=== PATIENT | male | born 1955 | race Caucasian/White ===

== ENCOUNTER 2016-12-24 21:50 | Inpatient (IN) | payer OTHER ==
[~2016-12-24] VITALS: Ht 180.3 cm; Wt 60.5 kg
[2016-12-24] MEDS ORDERED: ONDANSETRON INJ 2 MG/ML 2 ML VIAL IV STA (22:08)
[2016-12-24] MEDS ORDERED: SODIUM CHLORIDE 0.9% 1000ML 2,000 ML IV STA (22:08)
[2016-12-24] MEDS ORDERED: SODIUM CHLORIDE 0.9% 1000ML 1,000 ML IV STA (22:08)
[2016-12-24] MEDS ORDERED: PIPERACILLIN/TAZOBACTAM 4.5 GM/100ML D5W IV STA (22:10)
[2016-12-24] MEDS ORDERED: DAPTOmycin IV 500 MG in SODIUM CHLORIDE 0.9% 50ML 50 ML IV STA (22:10)
[2016-12-24] MEDS ORDERED: PANTOprazole INJ 80 MG in DEXTROSE 5% 100ML IV STA (22:26)
[2016-12-24] MEDS ORDERED: PANTOprazole INJ 40 MG in DEXTROSE 5% 100ML IV SCH (22:30)
[2016-12-24 22:32] LABS: MEAN CELL VOLUME 81.3 fL (80-100); MEAN CORPUSCULAR HEMOGLOBIN 27.4 pg (25-34); MEAN CORPUSCULAR HGB CONC 33.7 g/dl (32-36); MEAN PLATELET VOLUME 9.2 fL (7.4-10.4); PLATELET COUNT 168 K/uL (130-400); RED BLOOD COUNT 3.69 M/uL (4.7-6.1)
[2016-12-24 22:38] LABS: INR 1.3 (0.9-1.1); PARTIAL THROMBOPLASTIN RATIO 1.5; PROTHROMBIN TIME (PATIENT) 13.6 SECONDS (9.0-12.0)
--- NOTE | 2016-12-24 22:42 | DIAGNOSTIC IMAGING REPORT ---
SINGLE VIEW CHEST CLINICAL HISTORY: GI bleed. FINDINGS: An AP, portable, upright chest radiograph is obtained. No prior studies are available for comparison at the time of dictation. The examination is degraded by portable technique and patient rotation. The cardiomediastinal silhouette is unremarkable. There is atherosclerotic calcification of the thoracic aorta. Emphysema is suspected and there is nonspecific interstitial thickening. No airspace consolidation, large pleural effusion, or pneumothorax is seen. The skeletal structures are osteopenic. The bony thorax is grossly intact. Calcified gallstones are suspected in the right upper quadrant. IMPRESSION: 1. Suspect emphysema. There is no acute cardiopulmonary abnormality. 2. Calcified gallstones are questioned in the right upper quadrant. Electronically signed by: Doyle Diallo M.D. 12/24/2016 10:41 PM Dictated Date/Time: 12/24/2016 10:40 PM
[2016-12-24 22:48] LABS: CALCIUM 8.9 mg/dl (8.5-10.1)
[2016-12-24 22:49] LABS: ALT/SGPT 12 U/L (12-78); BLOOD UREA NITROGEN 50 mg/dl (7-18); BUN/CREATININE RATIO 21.6 (10-20); CARBON DIOXIDE 19 mmol/L (21-32); CHLORIDE 97 mmol/L (98-107); GLUCOSE 137 mg/dl (70-99); POTASSIUM 3.6 mmol/L (3.5-5.1); SODIUM 129 mmol/L (136-145)
[2016-12-24 22:54] LABS: ALKALINE PHOSPHATASE 147 U/L (45-117); AST/SGOT 14 U/L (15-37); CKMB/CK RATIO 1.4 (0-3.0)
[2016-12-24 23:02] LABS: BASO % 0.1 %; BASO ABS # 0.01 K/uL (0-0.2); COMPLETE YES; ECHINOCYTES 1+; HYPOCHROMIA PRESENT; IG% 0.3 %; LYMPH % 4.5 %; LYMPH ABS # 0.33 K/uL (1.2-3.4); MONO % 7.5 %; NEUT % 87.6 %
[2016-12-24] MEDS ORDERED: TAMS0.4C38 PO (23:23)
[2016-12-24] MEDS ORDERED: METO25TA56 PO (23:23)
[2016-12-24] MEDS ORDERED: MELO15TA4 PO (23:23)
[2016-12-24] MEDS ORDERED: ACET-1256 PO (23:23)
[2016-12-24] MEDS ORDERED: VANCOMYCIN INJ 1,000 MG in SODIUM CHLORIDE 0.9% 250ML 250 ML IV STA (23:51)
--- NOTE | 2016-12-24 23:51 | History and Physical ---
History & Physical Date & Time of Service: Dec 24, 2016 at 23:51 Chief Complaint: Blood In Stool Primary Care Physician: Saeed MATTHEWS History of Present Illness Source: patient 61-year-old male resident of [facility] [place], with a past medical history of colon cancer status post resection, who was sent to the emergency department with concerns regarding lower pelvic discomfort and the possibility of a colovesical fistula due to symptoms of bubbles produced when urinating, and urine leakage through rectum. The patient reports a history of wearing a colostomy bag in the past. He also reports progressive fatigue, generalized weakness, decreased oral intake, and low back pain and pelvic pain. 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) Multi-Drug Resistant Organisms History of MDRO: No Allergies Coded Allergies: No Known Allergies (Unverified , 12/24/16) Home Medications Scheduled Acetaminophen (Tylenol), 1,000 MG PO TID Meloxicam (Mobic), 15 MG PO DAILY Metoprolol Tartrate (Lopressor) (Lopressor), 25 MG PO BID Tamsulosin Hcl (Flomax), 0.4 MG PO DAILY Review of Systems The patient denies chest pain, palpitations, shortness of breath, cough, lower extremity swelling, vision change, hearing change, sore throat, fevers, chills, sweats, weight change, nausea, vomiting, lightheadedness, dizziness, headache , memory loss, rash, abnormal bruising or bleeding, imbalance, focal weakness, numbness or tingling in arms or legs, arthralgias or myalgias, night sweats, or allergy symptoms. The review of systems is otherwise negative other than for that already noted above, and at least 10 systems have been reviewed. Physical Exam Vital Signs Date Time Temp Pulse Resp B/P (MAP) Pulse Ox O2 Delivery O2 Flow Rate FiO2 12/24/16 23:20 118 21 12/24/16 23:10 103/66 95 12/24/16 22:50 124 27 12/24/16 22:47 95 Room Air 12/24/16 22:20 133 28 94 12/24/16 22:12 135 12/24/16 22:08 110/68 12/24/16 21:56 36.7 146 20 84/55 95 Room Air The patient is awake, alert and oriented 3, normocephalic and atraumatic, disheveled, lying in bed and in no acute distress. HEENT--PERRL, EOMI, mucous membranes and oropharynx dry. Neck--supple, no JVD or bruits, thyroid normal, trachea midline, no adenopathy. Heart--normal S1 and S2, no extra beats, no murmurs, rubs or gallops. Lungs--clear bilaterally but diminished throughout, no respiratory distress, no accessory muscle use. Abdomen--normal bowel sounds and soft, mild pelvic tenderness, nondistended, no hernias or masses, no organomegaly. Extremities--no cyanosis, clubbing or edema. There are good distal pulses b/l. Dermatologic--erythema/induration right lower pelvis/perineal area Neurologic--cranial nerves II through XII grossly intact. Psychiatric--normal affect. Diagnostics Laboratory Results Results Past 24 Hours Test 12/24/16 22:14 12/24/16 22:47 Range/Units White Blood Count 7.30 4.8-10.8 K/uL Red Blood Count 3.69 4.7-6.1 M/uL Hemoglobin 10.1 14.0-18.0 g/dL Hematocrit 30.0 42-52 % Mean Corpuscular Volume 81.3 80-100 fL Mean Corpuscular Hemoglobin 27.4 25-34 pg Mean Corpuscular Hemoglobin Concent 33.7 32-36 g/dl Platelet Count 168 130-400 K/uL Mean Platelet Volume 9.2 7.4-10.4 fL Neutrophils (%) (Auto) 87.6 % Lymphocytes (%) (Auto) 4.5 % Monocytes (%) (Auto) 7.5 % Eosinophils (%) (Auto) 0.0 % Basophils (%) (Auto) 0.1 % Neutrophils # (Auto) 6.39 1.4-6.5 K/uL Lymphocytes # (Auto) 0.33 1.2-3.4 K/uL Monocytes # (Auto) 0.55 0.11-0.59 K/uL Eosinophils # (Auto) 0.00 0-0.5 K/uL Basophils # (Auto) 0.01 0-0.2 K/uL RDW Standard Deviation 51.5 36.4-46.3 fL RDW Coefficient of Variation 17.0 11.5-14.5 % Immature Granulocyte % (Auto) 0.3 % Immature Granulocyte # (Auto) 0.02 0.00-0.02 K/uL Hypochromasia PRESENT Echinocytes 1+ Prothrombin Time 13.6 9.0-12.0 SECONDS Prothromb Time International Ratio 1.3 0.9-1.1 Activated Partial Thromboplast Time 39.1 21.0-31.0 SECONDS Partial Thromboplastin Ratio 1.5 Sodium Level 129 136-145 mmol/L Potassium Level 3.6 3.5-5.1 mmol/L Chloride Level 97 98-107 mmol/L Carbon Dioxide Level 19 21-32 mmol/L Anion Gap 13.0 3-11 mmol/L Blood Urea Nitrogen 50 7-18 mg/dl Creatinine 2.30 0.60-1.40 mg/dl Est Creatinine Clear Calc Drug Dose 28.5 ml/min Estimated GFR () 34.0 Estimated GFR (Non- 29.3 BUN/Creatinine Ratio 21.6 10-20 Random Glucose 137 70-99 mg/dl Calcium Level 8.9 8.5-10.1 mg/dl Total Bilirubin 0.5 0.2-1 mg/dl Direct Bilirubin 0.2 0-0.2 mg/dl Aspartate Amino Transf (AST/SGOT) 14 15-37 U/L Alanine Aminotransferase (ALT/SGPT) 12 12-78 U/L Alkaline Phosphatase 147 45-117 U/L Total Creatine Kinase 110 39-308 U/L Creatine Kinase MB 1.5 0.5-3.6 ng/ml Creatine Kinase MB Ratio 1.4 0-3.0 Troponin I < 0.015 0-0.045 ng/ml Total Protein 7.8 6.4-8.2 gm/dl Albumin 2.4 3.4-5.0 gm/dl Lipase 79 73-393 U/L Bedside Lactic Acid Venous 2.61 0.90-1.70 mmol/L Microbiology Results 12/24/16 Blood Culture, Received Pending 12/24/16 Blood Culture, Received Pending Diagnostic Radiology Patient Name: TAQUERIA WELSH [id number] Unit Number: [id number] Dictated: 12/24/162239 Transcribed: 12/24/162239 EV Printed Date/Time: [~ rep prt dt]/[~ rep prt tm] [~ rep ct labl] - [~ rep ct ivnm] [facility] Radiology Department [place] [id number] Dictated: 12/24/162239 Transcribed: 12/24/162239 EV Printed Date/Time: [~ rep prt dt]/[~ rep prt tm] [~ rep ct labl] - [~ rep ct ivnm] SINGLE VIEW CHEST CLINICAL HISTORY: GI bleed. FINDINGS: An AP, portable, upright chest radiograph is obtained. No prior studies are available for comparison at the time of dictation. The examination is degraded by portable technique and patient rotation. The cardiomediastinal silhouette is unremarkable. There is atherosclerotic calcification of the thoracic aorta. Emphysema is suspected and there is nonspecific interstitial thickening. No airspace consolidation, large pleural effusion, or pneumothorax is seen. The skeletal structures are osteopenic. The bony thorax is grossly intact. Calcified gallstones are suspected in the right upper quadrant. IMPRESSION: 1. Suspect emphysema. There is no acute cardiopulmonary abnormality. 2. Calcified gallstones are questioned in the right upper quadrant. Electronically signed by: Doyle Diallo M.D. 12/24/2016 10:41 PM Dictated Date/Time: 12/24/2016 10:40 PM The status of this report is Signed. Draft = Not yet reviewed or approved by Radiologist. Signed = Reviewed and approved by Radiologist. <AttendingPhy></AttendingPhy> <FamilyPhy>Saeed MATTHEWS</FamilyPhy> <PrimaryPhy> Saeed MATTHEWS</PrimaryPhy> <UnitNumber>[id number]</UnitNumber> <VisitNumber> [id number]</VisitNumber> <PatientName>TAQUERIA WELSH [id number]</PatientName> < DateOfBirth>1955</DateOfBirth> <Location>[facility]</Location> <ServiceDate>10/07</ServiceDate> <MNE>ESINDI</MNE> <OrderingPhy>Jay Ramirez MD</ OrderingPhy> <OrderingPhyMNE>f rep ord dr santos</OrderingPhyMNE> <DictatingPhyMNE> f rep dict dr santos</DictatingPhyMNE> <CCListMNE>f rep ct mne</CCListMNE> < AdmittingPhyMNE>f pt admit dr santos</AdmittingPhyMNE> <AttendingPhyMNE>f pt attend dr santos</AttendingPhyMNE> <ConsultingPhyMNE>f pt consult dr santos</ConsultingPhyMNE> <FamilyPhyMNE>f pt fam dr santos</FamilyPhyMNE> <OtherPhyMNE>f pt other dr santos</OtherPhyMNE> < PrimaryPhyMNE>f pt prim care dr santos</PrimaryPhyMNE> <ReferringPhyMNE>f pt referring dr santos</ReferringPhyMNE> Patient Name: TAQUERIA WELSH [id number] Unit Number: [id number] Dictated: 12/25/165 Transcribed: 12/25/165 EV Printed Date/Time: [~ rep prt dt]/[~ rep prt tm] [~ rep ct labl] - [~ rep ct ivnm] [facility] [place] [address] Dictated: 12/25/165 Transcribed: 12/25/165 EV Printed Date/Time: [~ rep prt dt]/[~ rep prt tm] [~ rep ct labl] - [~ rep ct ivnm] [~ rep ct add3]] CT SCAN OF THE ABDOMEN AND PELVIS WITHOUT IV CONTRAST CLINICAL HISTORY: Generalized abdominal pain. Nausea and vomiting. Diarrhea. Hematochezia. History of colon cancer. COMPARISON STUDY: No priors. TECHNIQUE: CT scan of the abdomen and pelvis is performed from the lung bases to the proximal femora. Images are reviewed in the axial, sagittal, and coronal planes. IV contrast was not administered for this examination due to elevated serum creatinine. Note that the examination is suboptimal without oral and IV contrast. Automated dose control exposure was utilized. CT DOSE: 290.70 mGy.cm FINDINGS: Lung bases: The heart is mildly enlarged and there is a small pericardial effusion. The coronary arteries are densely calcified. A tiny hiatal hernia is noted. There is a trace right pleural effusion and bibasilar atelectasis. Emphysema is suggested. No airspace consolidation is identified typical for pneumonia. Liver: The unenhanced liver appears enlarged. The liver demonstrates diffusely diminished attenuation consistent with hepatic steatosis. There is no intrahepatic biliary ductal dilatation. Indeterminant calcifications are noted along the hepatic capsule. Gallbladder: Contracted. Spleen: The spleen is markedly enlarged, measuring 16.7 cm in length. Pancreas: The unenhanced pancreas is moderately atrophic and grossly unremarkable. Adrenal glands: Unremarkable. Kidneys: The unenhanced kidneys images are cortical atrophy. There is moderate bilateral hydroureteronephrosis. Gas is present within the right renal collecting system. A mild nonspecific bilateral perinephric stranding is observed. Urothelial thickening is seen bilaterally. There are no renal calculi identified. There is no evidence of contour deforming renal mass lesion. Abdominal vasculature: The abdominal aorta is normal in course and caliber noting moderate atherosclerotic calcification. Bowel: There are postoperative changes from rectal resection with colocolonic anastomosis. No bowel obstruction is identified. The appendix is not identified and reported surgically absent. Peritoneum: There is no intraperitoneal free air or abdominal ascites. There is evidence of previous ventral hernia repair. No organized fluid collection is seen to suggest abscess. Lymphadenopathy: There is retroperitoneal lymphadenopathy. Retroperitoneal lymph nodes measure up to 12 mm in short axis. Pelvic viscera: Evaluation of the pelvis is degraded by streak artifact from a right hip arthroplasty. The bladder wall is markedly thickened. A bladder diverticulum is suggested eccentric to the left on image #[id number]. There is a large volume of gas within the bladder lumen. There is loss of the fat plane between the bladder and the rectosigmoid colon. A colovesicular fistula is not excluded. The prostate gland is diminutive and not well assessed. There is marked presacral soft tissue thickening and induration which may be treatment related. There is marked induration of the perineal soft tissues, right greater than left. There are numerous foci of subcutaneous gas identified in the right perineal region consistent with Patricia's gangrene. There is no perineal fluid collection identified to suggest abscess. Skeletal structures: The skeletal structures are osteopenic. Lumbosacral spondylosis is observed. There are age indeterminant compression deformities of T10, T11, T12, L4, and L5. No lytic or blastic lesions are seen. A right hip arthroplasty is in place. 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 There are healed left-sided rib fractures. IMPRESSION: 1. 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 2. There are postoperative changes from rectal resection with colocolonic anastomosis. Marked presacral soft tissue induration/thickening is likely treatment related. No bowel obstruction is seen. 3. The bladder is markedly thick-walled and contains intraluminal gas and debris. There is loss of the fat plane between the posterior bladder and the colon, and the appearance is highly concerning for a colovesicular fistula with superimposed cystitis. 4. There is moderate bilateral hydroureteronephrosis. There is gas present within the right renal collecting system, as well as bilateral perinephric stranding and urothelial thickening. The appearance is consistent with ascending urinary tract infection. Correlation with urinalysis will be required. 4. Cardiomegaly and trace pericardial effusion. 5. Emphysema. 6. Hepatomegaly and hepatic steatosis. 7. Marked splenomegaly. 8. Mild retroperitoneal lymphadenopathy. 9. Trace right pleural effusion. 10. There are small calcifications identified along the hepatic capsule. These are of indeterminant etiology and significance. 11. Additional findings as above. Findings were discussed with Dr. Ramirez in the emergency department at the time of interpretation. Electronically signed by: Doyle Diallo M.D. 12/25/2016 12:22 AM Dictated Date/Time: 12/25/2016 12:06 AM The status of this report is Signed. Draft = Not yet reviewed or approved by Radiologist. Signed = Reviewed and approved by Radiologist. <AttendingPhy></AttendingPhy> <FamilyPhy>Saeed MATTHEWS</FamilyPhy> <PrimaryPhy> Saeed MATTHEWS</PrimaryPhy> <UnitNumber>[id number]</UnitNumber> <VisitNumber> [id number]</VisitNumber> <PatientName>EL WELSHORY [id number]</PatientName> < DateOfBirth>1955</DateOfBirth> <Location>[facility]</Location> <ServiceDate>10/07</ServiceDate> <MNE>ESINDI</MNE> <OrderingPhy>Jay Ramirez MD</ OrderingPhy> <OrderingPhyMNE>f rep ord dr santos</OrderingPhyMNE> <DictatingPhyMNE> f rep dict dr santos</DictatingPhyMNE> <CCListMNE>f rep ct tom</CCListMNE> < AdmittingPhyMNE>f pt admit dr santos</AdmittingPhyMNE> <AttendingPhyMNE>f pt attend dr santos</AttendingPhyMNE> <ConsultingPhyMNE>f pt consult dr santos</ConsultingPhyMNE> <FamilyPhyMNE>f pt fam dr santos</FamilyPhyMNE> <OtherPhyMNE>f pt other dr santos</OtherPhyMNE> < PrimaryPhyMNE>f pt prim care dr santos</PrimaryPhyMNE> <ReferringPhyMNE>f pt referring dr santos</ReferringPhyMNE> EKG EKG shows sinus tachycardia at 120 bpm, nonspecific ST-T changes rate related. 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 Place on vancomycin IV per renal dosing, Zosyn 3.375 mg IV every 8 hours, clindamycin 900 mg IV every 8 hours. Keep nothing by mouth. Place on Protonix 40 mg IV daily, Zofran 4 mg IV every 6 hours when necessary, morphine sulfate 2-4 mg IV every 2 hours when necessary, acetaminophen 650 mg IV every 6 hours when necessary. General surgery consult tonight, will also need a urologic consult. Acute renal insufficiency/hyponatremia-continue to hydrate with normal saline 150 ML's per hour. Follow serial BMP and magnesium levels. Sinus tachycardia--secondary to dehydration and sepsis. He has already received 2 L of normal saline and emergency department, and we'll continue however at 150 ML's per hour. Bilateral Hydroureterohydronephrosis/chronic bladder wall thickening/renal insufficiency--secondary to above process. Hepatomegaly/splenomegaly--check a hepatitis profile. Consider HIV testing if not done recently Left femoral head avascular necrosis--can address with orthopedics after above is treated. T10, T11, T12, L4 and L5 age-indeterminate compression fractures--no signs of bony lytic or blastic lesions on CT. Level of Care Med/Surg Advanced Directives Existing Advance Directive: No Existing Living Will: No Existing Power of Press Setter: No Resuscitation Status FULL RESUSCITATION VTE Prophylaxis VTE Risk Assessment Done? Y/N: Yes Risk Level: Moderate Given or contraindicated: SCD's
[2016-12-25] MEDS ORDERED: ACETAMINOPHEN IV 100 ML IV PRN
[2016-12-25] MEDS ORDERED: ACETAMINOPHEN 325 MG TAB PO PRN
--- NOTE | 2016-12-25 00:24 | DIAGNOSTIC IMAGING REPORT ---
CT SCAN OF THE ABDOMEN AND PELVIS WITHOUT IV CONTRAST CLINICAL HISTORY: Generalized abdominal pain. Nausea and vomiting. Diarrhea. Hematochezia. History of colon cancer. COMPARISON STUDY: No priors. TECHNIQUE: CT scan of the abdomen and pelvis is performed from the lung bases to the proximal femora. Images are reviewed in the axial, sagittal, and coronal planes. IV contrast was not administered for this examination due to elevated serum creatinine. Note that the examination is suboptimal without oral and IV contrast. Automated dose control exposure was utilized. CT DOSE: 290.70 mGy.cm FINDINGS: Lung bases: The heart is mildly enlarged and there is a small pericardial effusion. The coronary arteries are densely calcified. A tiny hiatal hernia is noted. There is a trace right pleural effusion and bibasilar atelectasis. Emphysema is suggested. No airspace consolidation is identified typical for pneumonia. Liver: The unenhanced liver appears enlarged. The liver demonstrates diffusely diminished attenuation consistent with hepatic steatosis. There is no intrahepatic biliary ductal dilatation. Indeterminant calcifications are noted along the hepatic capsule. Gallbladder: Contracted. Spleen: The spleen is markedly enlarged, measuring 16.7 cm in length. Pancreas: The unenhanced pancreas is moderately atrophic and grossly unremarkable. Adrenal glands: Unremarkable. Kidneys: The unenhanced kidneys images are cortical atrophy. There is moderate bilateral hydroureteronephrosis. Gas is present within the right renal collecting system. A mild nonspecific bilateral perinephric stranding is observed. Urothelial thickening is seen bilaterally. There are no renal calculi identified. There is no evidence of contour deforming renal mass lesion. Abdominal vasculature: The abdominal aorta is normal in course and caliber noting moderate atherosclerotic calcification. Bowel: There are postoperative changes from rectal resection with colocolonic anastomosis. No bowel obstruction is identified. The appendix is not identified and reported surgically absent. Peritoneum: There is no intraperitoneal free air or abdominal ascites. There is evidence of previous ventral hernia repair. No organized fluid collection is seen to suggest abscess. Lymphadenopathy: There is retroperitoneal lymphadenopathy. Retroperitoneal lymph nodes measure up to 12 mm in short axis. Pelvic viscera: Evaluation of the pelvis is degraded by streak artifact from a right hip arthroplasty. The bladder wall is markedly thickened. A bladder diverticulum is suggested eccentric to the left on image #[id number]. There is a large volume of gas within the bladder lumen. There is loss of the fat plane between the bladder and the rectosigmoid colon. A colovesicular fistula is not excluded. The prostate gland is diminutive and not well assessed. There is marked presacral soft tissue thickening and induration which may be treatment related. There is marked induration of the perineal soft tissues, right greater than left. There are numerous foci of subcutaneous gas identified in the right perineal region consistent with Patricia's gangrene. There is no perineal fluid collection identified to suggest abscess. Skeletal structures: The skeletal structures are osteopenic. Lumbosacral spondylosis is observed. There are age indeterminant compression deformities of T10, T11, T12, L4, and L5. No lytic or blastic lesions are seen. A right hip arthroplasty is in place. 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 There are healed left-sided rib fractures. IMPRESSION: 1. 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 2. There are postoperative changes from rectal resection with colocolonic anastomosis. Marked presacral soft tissue induration/thickening is likely treatment related. No bowel obstruction is seen. 3. The bladder is markedly thick-walled and contains intraluminal gas and debris. There is loss of the fat plane between the posterior bladder and the colon, and the appearance is highly concerning for a colovesicular fistula with superimposed cystitis. 4. There is moderate bilateral hydroureteronephrosis. There is gas present within the right renal collecting system, as well as bilateral perinephric stranding and urothelial thickening. The appearance is consistent with ascending urinary tract infection. Correlation with urinalysis will be required. 4. Cardiomegaly and trace pericardial effusion. 5. Emphysema. 6. Hepatomegaly and hepatic steatosis. 7. Marked splenomegaly. 8. Mild retroperitoneal lymphadenopathy. 9. Trace right pleural effusion. 10. There are small calcifications identified along the hepatic capsule. These are of indeterminant etiology and significance. 11. Additional findings as above. Findings were discussed with Dr. Ramirez in the emergency department at the time of interpretation. Electronically signed by: Doyle Diallo M.D. 12/25/2016 12:22 AM Dictated Date/Time: 12/25/2016 12:06 AM
[2016-12-25] MEDS ORDERED: CLINDAMYCIN IV 900 MG in DEXTROSE 5% ADD-VANTAGE 100ML 100 ML IV ONE (00:30)
[2016-12-25 00:53] LABS: URINE APPEARANCE TURBID (CLEAR); URINE BILIRUBIN NEG (NEG); URINE COLOR ORANGE; URINE EPITHELIAL CELL AUTO >30 /lpf (0-5); URINE NITRITE POS (NEG); URINE PH 7.5 (4.5-7.5); URINE SPECIFIC GRAVITY 1.015 (1.000-1.030); UROBILINOGEN NEG (NEG)
[2016-12-25 00:56] LABS: MANUAL MICROSCOPIC REQUIRED? NO; REVIEW REQ? YES
[2016-12-25 01:07] LABS: SULFASALICYLIC ACID POS (NEG)
[2016-12-25] MEDS ORDERED: VANCOMYCIN CONSULT ACTIVE PRN (01:15)
--- NOTE | 2016-12-25 01:23 | EMERGENCY ROOM VISIT NOTE ---
History Report prepared by Rocio: Tiff Arnold Under the Supervision of: Dr. Jay Ramirez M.D. First contact with patient: 21:59 Chief Complaint: RECTAL BLEEDING Stated Complaint: BLOOD IN STOOL History of Present Illness The patient is a 61 year old male who presents to the Emergency Room with complaints of intermittent melena since yesterday evening. The patient noticed black, watery, liquid stools yesterday that have continued into today. The patient also reports middle abdominal pain, nausea, and vomiting. He rates his pain as an 8/10 in severity. He is currently incarcerated. He was evaluated at the long term for these symptoms. The patient had a [place] 100.8[place] [address], hemoglobin of 9.8, and his creatinine was elevated at 2. They were concerned that the patient might have a rectovesical fistula. He was sent to the ED for further evaluation. He has a history of colon cancer and rectal bleeding. Pt denies LOC, headache, chills, diaphoresis, visual changes, neck pain, chest pain, breathing difficulties, back pain, urinary symptoms, numbness , weakness, lymphadenopathy, rash, or other complaints. Source of History: patient Onset: yesterday evening Position: abdomen Symptom Intensity: 8/10 Quality: other (black, watery) Timing: intermittent Associated Symptoms: + fevers, + nausea, + vomiting, + abdominal pain, + melena Review of Systems See HPI for pertinent positives and negatives. A total of ten systems were reviewed and were otherwise negative. Past Medical & Surgical Medical Problems: (1) Cellulitis of left upper limb (2) History of colon cancer Surgical Problems: (1) History of right hip replacement Family History No pertinent history stated. Social History Smoking Status: Current Every Day Smoker Housing Status: other (incarcerated) Occupation Status: other (incarcerated) Current/Historical Medications Scheduled Acetaminophen (Tylenol), 1,000 MG PO TID Meloxicam (Mobic), 15 MG PO DAILY Metoprolol Tartrate (Lopressor) (Lopressor), 25 MG PO BID Tamsulosin Hcl (Flomax), 0.4 MG PO DAILY Allergies Coded Allergies: No Known Allergies (Unverified , 12/24/16) Physical Exam Vital Signs Date Time Temp Pulse Resp B/P (MAP) Pulse Ox O2 Delivery O2 Flow Rate FiO2 12/24/16 23:36 113 22 12/24/16 23:31 109/68 12/24/16 23:25 118 22 95 12/24/16 23:20 118 21 12/24/16 23:10 103/66 95 12/24/16 22:50 124 27 12/24/16 22:47 95 Room Air 12/24/16 22:20 133 28 94 12/24/16 22:12 135 12/24/16 22:08 110/68 12/24/16 21:56 36.7 146 20 84/55 95 Room Air Physical Exam GENERAL: Awake, alert, well-appearing, in no distress HENT: Normocephalic, atraumatic. Oropharynx unremarkable. EYES: Pale conjunctiva. Sclera non-icteric. NECK: Supple. No nuchal rigidity. FROM. No JVD. RESPIRATORY: Clear to auscultation. CARDIAC: Tachycardic rate, normal rhythm. Extremities warm and well perfused. Pulses equal. ABDOMEN: Soft, non-distended. Middle abdominal pain. No rebound or guarding. No masses. RECTAL: Black stool present. He had induration and tenderness of his right gluteal perirectal area. MUSCULOSKELETAL: Chest examination reveals no tenderness. The back is symmetrical on inspection without obvious abnormality. There is no CVA tenderness to palpation. No joint edema. LOWER EXTREMITIES: Calves are equal size bilaterally and non-tender. No edema. No discoloration. NEURO: Normal sensorium. No sensory or motor deficits noted. SKIN: No rash or jaundice noted. Medical Decision & Procedures ER Provider Diagnostic Interpretation: Radiology results as stated below per my review and radiologist interpretation: SINGLE VIEW CHEST CLINICAL HISTORY: GI bleed. FINDINGS: An AP, portable, upright chest radiograph is obtained. No prior studies are available for comparison at the time of dictation. The examination is degraded by portable technique and patient rotation. The cardiomediastinal silhouette is unremarkable. There is atherosclerotic calcification of the thoracic aorta. Emphysema is suspected and there is nonspecific interstitial thickening. No airspace consolidation, large pleural effusion, or pneumothorax is seen. The skeletal structures are osteopenic. The bony thorax is grossly intact. Calcified gallstones are suspected in the right upper quadrant. IMPRESSION: 1. Suspect emphysema. There is no acute cardiopulmonary abnormality. 2. Calcified gallstones are questioned in the right upper quadrant. Electronically signed by: Doyle Diallo M.D. 12/24/2016 10:41 PM Dictated Date/Time: 12/24/2016 10:[address] SCAN OF THE ABDOMEN AND PELVIS WITHOUT IV CONTRAST CLINICAL HISTORY: Generalized abdominal pain. Nausea and vomiting. Diarrhea. Hematochezia. History of colon cancer. COMPARISON STUDY: No priors. TECHNIQUE: CT scan of the abdomen and pelvis is performed from the lung bases to the proximal femora. Images are reviewed in the axial, sagittal, and coronal planes. IV contrast was not administered for this examination due to elevated serum creatinine. Note that the examination is suboptimal without oral and IV contrast. Automated dose control exposure was utilized. CT DOSE: 290.70 mGy.cm FINDINGS: Lung bases: The heart is mildly enlarged and there is a small pericardial effusion. The coronary arteries are densely calcified. A tiny hiatal hernia is noted. There is a trace right pleural effusion and bibasilar atelectasis. Emphysema is suggested. No airspace consolidation is identified typical for pneumonia. Liver: The unenhanced liver appears enlarged. The liver demonstrates diffusely diminished attenuation consistent with hepatic steatosis. There is no intrahepatic biliary ductal dilatation. Indeterminant calcifications are noted along the hepatic capsule. Gallbladder: Contracted. Spleen: The spleen is markedly enlarged, measuring 16.7 cm in length. Pancreas: The unenhanced pancreas is moderately atrophic and grossly unremarkable. Adrenal glands: Unremarkable. Kidneys: The unenhanced kidneys images are cortical atrophy. There is moderate bilateral hydroureteronephrosis. Gas is present within the right renal collecting system. A mild nonspecific bilateral perinephric stranding is observed. Urothelial thickening is seen bilaterally. There are no renal calculi identified. There is no evidence of contour deforming renal mass lesion. Abdominal vasculature: The abdominal aorta is normal in course and caliber noting moderate atherosclerotic calcification. Bowel: There are postoperative changes from rectal resection with colocolonic anastomosis. No bowel obstruction is identified. The appendix is not identified and reported surgically absent. Peritoneum: There is no intraperitoneal free air or abdominal ascites. There is evidence of previous ventral hernia repair. No organized fluid collection is seen to suggest abscess. Lymphadenopathy: There is retroperitoneal lymphadenopathy. Retroperitoneal lymph nodes measure up to 12 mm in short axis. Pelvic viscera: Evaluation of the pelvis is degraded by streak artifact from a right hip arthroplasty. The bladder wall is markedly thickened. A bladder diverticulum is suggested eccentric to the left on image #[id number]. There is a large volume of gas within the bladder lumen. There is loss of the fat plane between the bladder and the rectosigmoid colon. A colovesicular fistula is not excluded. The prostate gland is diminutive and not well assessed. There is marked presacral soft tissue thickening and induration which may be treatment related. There is marked induration of the perineal soft tissues, right greater than left. There are numerous foci of subcutaneous gas identified in the right perineal region consistent with Patricia's gangrene. There is no perineal fluid collection identified to suggest abscess. Skeletal structures: The skeletal structures are osteopenic. Lumbosacral spondylosis is observed. There are age indeterminant compression deformities of T10, T11, T12, L4, and L5. No lytic or blastic lesions are seen. A right hip arthroplasty is in place. 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 There are healed left-sided rib fractures. IMPRESSION: 1. 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 2. There are postoperative changes from rectal resection with colocolonic anastomosis. Marked presacral soft tissue induration/thickening is likely treatment related. No bowel obstruction is seen. 3. The bladder is markedly thick-walled and contains intraluminal gas and debris. There is loss of the fat plane between the posterior bladder and the colon, and the appearance is highly concerning for a colovesicular fistula with superimposed cystitis. 4. There is moderate bilateral hydroureteronephrosis. There is gas present within the right renal collecting system, as well as bilateral perinephric stranding and urothelial thickening. The appearance is consistent with ascending urinary tract infection. Correlation with urinalysis will be required. 4. Cardiomegaly and trace pericardial effusion. 5. Emphysema. 6. Hepatomegaly and hepatic steatosis. 7. Marked splenomegaly. 8. Mild retroperitoneal lymphadenopathy. 9. Trace right pleural effusion. 10. There are small calcifications identified along the hepatic capsule. These are of indeterminant etiology and significance. 11. Additional findings as above. Findings were discussed with Dr. Ramirez in the emergency department at the time of interpretation. Electronically signed by: Doyle Diallo M.D. 12/25/2016 12:22 AM Dictated Date/Time: 12/25/2016 12:06 AM Laboratory Results 12/24/16 22:14 Red Blood Count 3.69, Mean Corpuscular Volume 81.3, Mean Corpuscular Hemoglobin 27.4, Mean Corpuscular Hemoglobin Concent 33.7, Mean Platelet Volume 9.2, Neutrophils (%) (Auto) 87.6, Lymphocytes (%) (Auto) 4.5, Monocytes (%) (Auto) 7.5, Eosinophils (%) (Auto) 0.0, Basophils (%) (Auto) 0.1, Neutrophils # (Auto) 6.39, Lymphocytes # (Auto) 0.33, Monocytes # (Auto) 0.55, Eosinophils # (Auto) 0.00, Basophils # (Auto) 0.01 12/24/16 22:14 Test 12/24/16 22:14 12/24/16 22:47 White Blood Count 7.30 K/uL (4.8-10.8) Red Blood Count 3.69 M/uL (4.7-6.1) Hemoglobin 10.1 g/dL (14.0-18.0) Hematocrit 30.0 % (42-52) Mean Corpuscular Volume 81.3 fL (80-100) Mean Corpuscular Hemoglobin 27.4 pg (25-34) Mean Corpuscular Hemoglobin Concent 33.7 g/dl (32-36) Platelet Count 168 K/uL (130-400) Mean Platelet Volume 9.2 fL (7.4-10.4) Neutrophils (%) (Auto) 87.6 % Lymphocytes (%) (Auto) 4.5 % Monocytes (%) (Auto) 7.5 % Eosinophils (%) (Auto) 0.0 % Basophils (%) (Auto) 0.1 % Neutrophils # (Auto) 6.39 K/uL (1.4-6.5) Lymphocytes # (Auto) 0.33 K/uL (1.2-3.4) Monocytes # (Auto) 0.55 K/uL (0.11-0.59) Eosinophils # (Auto) 0.00 K/uL (0-0.5) Basophils # (Auto) 0.01 K/uL (0-0.2) RDW Standard Deviation 51.5 fL (36.4-46.3) RDW Coefficient of Variation 17.0 % (11.5-14.5) Immature Granulocyte % (Auto) 0.3 % Immature Granulocyte # (Auto) 0.02 K/uL (0.00-0.02) Hypochromasia PRESENT Echinocytes 1+ Prothrombin Time 13.6 SECONDS (9.0-12.0) Prothromb Time International Ratio 1.3 (0.9-1.1) Activated Partial Thromboplast Time 39.1 SECONDS (21.0-31.0) Partial Thromboplastin Ratio 1.5 Anion Gap 13.0 mmol/L (3-11) Est Creatinine Clear Calc Drug Dose 28.5 ml/min Estimated GFR () 34.0 Estimated GFR (Non- 29.3 BUN/Creatinine Ratio 21.6 (10-20) Osmolality 281 mOsm/kg (280-300) Calcium Level 8.9 mg/dl (8.5-10.1) Total Bilirubin 0.5 mg/dl (0.2-1) Direct Bilirubin 0.2 mg/dl (0-0.2) Aspartate Amino Transf (AST/SGOT) 14 U/L (15-37) Alanine Aminotransferase (ALT/SGPT) 12 U/L (12-78) Alkaline Phosphatase 147 U/L (45-117) Total Creatine Kinase 110 U/L (39-308) Creatine Kinase MB 1.5 ng/ml (0.5-3.6) Creatine Kinase MB Ratio 1.4 (0-3.0) Troponin I < 0.015 ng/ml (0-0.045) Total Protein 7.8 gm/dl (6.4-8.2) Albumin 2.4 gm/dl (3.4-5.0) Lipase 79 U/L (73-393) Bedside Lactic Acid Venous 2.61 mmol/L (0.90-1.70) Laboratory results reviewed by me. Medications Administered Medications (Trade) Dose Ordered Sig/[place] Route Start Time Stop Time Status Last Admin Dose Admin Ondansetron HCl (Zofran Inj) 4 mg NOW STAT IV 12/24/16 22:08 12/24/16 22:10 DC 12/24/16 22:58 4 MG Sodium Chloride 2,000 ml @ 999 mls/hr Q2H1M STAT IV 12/24/16 22:08 12/25/16 00:08 DC 12/24/16 22:56 999 MLS/HR Sodium Chloride 1,000 ml @ 200 mls/hr Q5H STAT IV 12/24/16 22:08 12/25/16 01:07 DC 12/24/16 23:00 200 MLS/HR Piperacillin Sod/ Tazobactam Sod (Zosyn Iv) 4.5 gm NOW STAT IV 12/24/16 22:10 12/24/16 22:11 DC 12/24/16 23:01 4.5 GM Daptomycin 500 mg/ Sodium Chloride 60 ml @ 100 mls/hr NOW STAT IV 12/24/16 22:10 12/24/16 22:45 DC 12/24/16 23:40 100 MLS/HR Pantoprazole Sodium 80 mg/ Dextrose 120 ml @ 480 mls/hr NOW STAT IV 12/24/16 22:26 12/24/16 22:40 DC 12/24/16 23:03 480 MLS/HR Pantoprazole Sodium 40 mg/ Dextrose 100 ml @ 20 mls/hr Q5H IV 12/24/16 22:30 12/25/16 03:29 12/24/16 23:27 20 MLS/HR ECG Indication: tachycardia Rate (beats per minute): 120 Rhythm: sinus tachycardia Findings: nonspecific-ST abn, no acute ischemic change, no ectopy ED Course 2204: The patient was evaluated in room A3. A complete history and physical exam was performed. 2208: NSS 1000 ml @ 200 mls/hr IV, NSS 2000 ml @ 999 mls/hr IV, Zofran 4 mg IV 2210: Daptomycin 500 mg/Sodium chloride 60 ml @ 100 mls/hr IV, Zosyn 4.5 gmIV. 2226: Pantoprazole Sodium 80 mg/Dextrose 120 ml @ 480 mls/hr IV. The patient was reassessed and is feeling somewhat better. Hypotension has resolved. 2230: Pantoprazole Sodium 40 mg/Dextrose 100 ml @ 20 mls/hr IV 2334: I spoke with Dr. Roque. We discussed the patient's results and treatment plan. The patient will be evaluated by the [facility] for further management. 0001: I reassessed the patient at this time. I performed a rectal examination. Please see the physical examination above for my findings. I discussed the results and treatment plan with the patient. I answered all pertaining questions that he had. He expressed understanding and verbalized agreement. 0009: I spoke with Dr. Diallo of radiology. We discussed the patient's CT results. The patient has Patricia's gangrene. He also has air and abnormal appearance to the bladder, as well as air within his renal collecting system and hydronephrosis. 0017: I spoke with Dr. Aviles of general surgery. We discussed the patient's case in great detail and I especially emphasized the patient's CT findings and physical findings concerning for the foreign's gangrene. He does not think that the patient needs surgery at this time. 0027: I spoke with Dr. Roque again at this time and we discussed the patient's CT results. He is admitting the patient and is requesting surgical consultation. 0040: After discussion with Dr. Ramiro Roque he is putting an urgent consult for general surgery and asked that I contact him again. General surgery , Dr. Aviles was consulted again and I stressed the need for surgical evaluation of the patient and review of the CT imaging regarding the findings to see if he needs any additional care especially urgent surgical intervention. He agreed to see the patient. Medical Decision Medication Reconciliation: I attest that I have personally reviewed the patient' s current medication list Blood pressure screening: Patient was found to have normal blood pressure on screening and does not require follow-up. The patient had blood work [place]. [place] [address], hemoglobin of 9.8 , and his creatinine was elevated at 2. Triage Nursing notes reviewed. The patient's presentation and history were concerning for possible GI bleeding and infection. Etiologies such as diverticulosis, AVM, coagulopathy, colitis, inflammatory bowel disease, malignancy,Laura-Stark tear, esophagitis, peptic ulcer disease , variceal bleed, gastritis, epistaxis, fissure, hemorrhoids, pyelonephritis, cystitis, prostatitis, abscess, diverticulitis as well as others were entertained. Patient was evaluated. He was acutely ill. He was hypertensive and tachycardic. IVs were established. Cultures and lactate performed. The patient had IV fluid resuscitation initiated, approximately 33 mL/kg. Broad- spectrum antibiotics were initiated as well. The patient was doing better after fluid administration. He was typed and crossed. His CBC actually showed a improved white blood cell count although his fever and 14,000 white count from earlier today was very concerning. The patient was mildly anemic. Chemistry panel did reveal acute kidney injury. The patient had a consultation placed with internal medicine. I discussed the case with Dr. Ramiro Roque. CT imaging was ordered to further evaluate the patient's abdominal pain complaints and sepsis issues. Chest imaging did not reveal any acute findings. The patient has marked abnormalities on his CT scan as documented above. Clindamycin was added. The patient was reexamined and he does have some induration in the right gluteal region and this is concerning for the CT findings of Patricia's gangrene. Urgent surgical consultation was made and I discussed the case with Dr. Aviles. Initially he felt medical management was most appropriate. I discussed the case with Dr. Ramiro Roque again and we concluded a urgent surgical consultation was most appropriate and I discussed the case again with Dr. Aviles. He agreed to see the patient and reviewed his diagnostics and person. Repeat lactate measurement done by Dr. Ramiro Roque showed improvement decreasing from 2.6-1.6. The patient was admitted to the hospital for further care of these complex medical issues. Consults Time Called: [phone] Consulting Physician: Dr. Roque Returned Call: [phone] Roque. We discussed the patient's results and treatment plan. The patient will be evaluated by the [facility] for further management. Additional Consults: Time Called: 000 Consulted Physician: Dr. Diallo Returned Call: 000 Additional Comments: I spoke with Dr. Diallo of radiology. We discussed the patient's CT results. The patient has Patricia's gangrene. He also has air and abnormal appearance to the bladder, as well as air within his renal collecting system and hydronephrosis. Time Called: 4 Consulted Physician: Dr. Aviles Returned Call: [phone] Additional Comments: I spoke with Dr. Aviles of general surgery. We discussed the patient's case. He does not think that the patient needs surgery at this time. Impression Primary Impression: GI bleed Additional Impressions: Sepsis Acute renal failure Fourniers gangrene Critical Care I have personally spent greater than 60 minutes of critical care time in the direct management of this patient. This includes bedside care, interpretation of diagnostic studies, and testing, discussion with consultants, patient, and other required patient management activities. This 60 minutes is in excess of all separately billable procedures. Scribe Attestation The scribe's documentation has been prepared under my direction and personally reviewed by me in its entirety. I confirm that the note above accurately reflects all work, treatment, procedures, and medical decision making performed by me. Departure Information Dispostion Being Evaluated By Hospitalist Referrals Saeed MATTHEWS (PCP) Patient Instructions My [facility] Problem Qualifiers Primary Impression: GI bleed GI bleed type/associated pathology: unspecified gastrointestinal hemorrhage type Qualified Codes: K92.2 - Gastrointestinal hemorrhage, unspecified Additional Impressions: Sepsis Sepsis type: sepsis due to unspecified organism Qualified Codes: A41.9 - Sepsis, unspecified organism Acute renal failure Acute renal failure type: unspecified Qualified Codes: N17.9 - Acute kidney failure, unspecified
[2016-12-25 01:26] VITALS: BP 94/59; PULSE 117; TEMP 37; O2SAT 98
[2016-12-25 01:30] VITALS: Ht 180.3 cm; Wt 60.5 kg
[2016-12-25] MEDS ORDERED: MoRPHine SULFATE 4 MG/ML 1 ML CARP\\VIAL IV PRN (01:30)
[2016-12-25] MEDS ORDERED: MoRPHine SULFATE 2 MG/ML CARP IV PRN (01:30)
[2016-12-25] MEDS: SODIUM CHLORIDE 0.9% 1000ML 1,000 ML IV SCH ×3 (01:49→16:25)
[2016-12-25] MEDS ORDERED: VANCOMYCIN INJ 1,500 MG in SODIUM CHLORIDE 0.9% 500ML 500 ML IV SCH (02:00)
--- NOTE | 2016-12-25 02:08 | Surgery Consultation ---
Consultation Date of Consultation: Dec 25, 2016. Attending Physician: Ramiro Roque M.D. History of Present Illness pt is a 61 years old male who presents to ER for 2 days history black stool and air bubble in urine. vomiting once without blood, pt denies fever, no diarrhea , no abdominal pain, 20 lbs weight loss over 2 months, pt had colon cancer surgery in 2005 at other hospital. Past Medical/Surgical History Medical Problems: (1) Acute renal failure Status: Acute (2) Fourniers gangrene Status: Acute (3) GI bleed Status: Acute (4) Sepsis Status: Acute Social History Smoking Status: Current Every Day Smoker Smokeless Tobacco Use: No Alcohol Use: none Drug Use: none Housing Status: other (incarcerated) Occupation Status: other (incarcerated) Allergies Coded Allergies: No Known Allergies (Unverified , 12/24/16) Home Medications Scheduled Acetaminophen (Tylenol), 1,000 MG PO TID Meloxicam (Mobic), 15 MG PO DAILY Metoprolol Tartrate (Lopressor) (Lopressor), 25 MG PO BID Tamsulosin Hcl (Flomax), 0.4 MG PO DAILY Current Inpatient Medications Current Inpatient Medications Medications (Trade) Dose Ordered Sig/Kanchan Route Start Time Stop Time Status Last Admin Dose Admin Pantoprazole Sodium 40 mg/ Dextrose 100 ml @ 20 mls/hr Q5H IV 12/24/16 22:30 12/25/16 03:29 12/24/16 23:27 20 MLS/HR Acetaminophen (Tylenol Tab) 650 mg Q4H PRN PO 12/25/16 00:00 01/24/17 00:00 Ondansetron HCl (Zofran Inj) 4 mg Q6H PRN IV 12/25/16 00:00 01/24/17 00:00 Acetaminophen 100 ml @ 400 mls/hr Q8H PRN IV 12/25/16 00:00 01/24/17 00:00 Pantoprazole Sodium 40 mg/ Syringe 10 ml @ 5 mls/min DAILY@11 IV 12/25/16 11:00 01/24/17 10:59 Piperacillin Sod/ Tazobactam Sod 3.375 gm/Dextrose 115 ml @ 30 mls/hr Q8H IV 12/25/16 04:00 01/04/17 03:59 Metoprolol Tartrate (Lopressor Tab) 25 mg BID PO 12/25/16 09:00 01/24/17 08:59 Tamsulosin HCl (Flomax Cap) 0.4 mg DAILY PO 12/25/16 09:00 01/24/17 08:59 Sodium Chloride 1,000 ml @ 150 mls/hr Q6H40M IV 12/25/16 01:15 01/24/17 01:14 Clindamycin Phosphate 900 mg/ Dextrose 106 ml @ 100 mls/hr Q8H IV 12/25/16 00:45 01/04/17 00:44 UNV Vancomycin HCl (Consult) 1 ea UD PRN N/A 12/25/16 01:15 01/24/17 01:14 Vancomycin HCl 1500 mg/Sodium Chloride 530 ml @ 200 mls/hr TODAY@0200 IV 12/25/16 02:00 12/25/16 04:38 Morphine Sulfate (MoRPHine SULFATE INJ) 2 mg Q2H PRN IV 12/25/16 01:30 01/08/17 01:29 Morphine Sulfate (MoRPHine SULFATE INJ) 4 mg Q2H PRN IV 12/25/16 01:30 01/08/17 01:29 Review of Systems Constitutional: No fever, No chills, No sweats, No weight loss, No weakness, No fatigue, No problem reported Eyes: No worsening of vision, No eye pain, No redness, No discharge, No diplopia, No problem reported ENT: No hearing loss, No unusual epistaxis, No nasal symptoms, No sore throat, No tinnitus, No dental problems, No trouble swallowing, No problem reported Respiratory: No cough, No sputum, No wheezing, No shortness of breath, No dyspnea on exertion, No dyspnea at rest, No hemoptysis, No problem reported Cardiovascular: + problem reported (HTN), No chest pain, No orthopnea, No PND, No edema, No claudication, No palpitations Abdomen: + vomiting, + GI bleeding, + problem reported (colon cancer surgery in 2004) Musculoskeletal: + problem reported (hip replacement), No joint pain, No muscle pain, No swelling, No calf pain Genitourinary - Male: + problem reported (air bubble in urine), No hematuria, No dysuria, No urinary frequency, No urinary urgency, No urinary hesitancy, No urinary retention, No urinary incontinence, No penile discharge, No lesions, No impotence Neurologic: No memory loss, No paralysis, No weakness, No numbness/tingling, No vertigo, No balance problems, No problem reported Psychiatric: No depression symptoms, No anhedonism, No anxiety, No insomnia, No substance abuse, No problem reported Endocrine: No fatigue, No excessive thirst, No excessive urination, No problem reported Hematologic / Lymphatic: No abnormal bleeding/bruising, No clotting problems, No swollen lymph nodes, No night sweats, No problem reported Integumentary: No rash, No itch, No new/changing skin lesions, No color change , No bleeding, No problem reported Physical Exam Date Time Temp Pulse Resp B/P (MAP) Pulse Ox O2 Delivery O2 Flow Rate FiO2 12/25/16 01:26 37.0 117 19 94/59 (71) 98 Room Air 12/25/16 00:38 36.7 101 25 98/62 98 12/25/16 00:36 101 25 98 12/25/16 00:31 98/62 12/25/16 00:23 98/52 12/24/16 23:36 113 22 12/24/16 23:31 109/68 12/24/16 23:25 118 22 95 12/24/16 23:20 118 21 12/24/16 23:10 103/66 95 12/24/16 22:50 124 27 12/24/16 22:47 95 Room Air 12/24/16 22:20 133 28 94 12/24/16 22:12 135 12/24/16 22:08 110/68 12/24/16 21:56 36.7 146 20 84/55 95 Room Air General Appearance: WD/WN, no apparent distress Head: normocephalic Eyes: normal inspection Neck: supple, no JVD Respiratory/Chest: chest non-tender, lungs clear, normal breath sounds Cardiovascular: regular rate, rhythm, no edema, no gallop, no JVD, no murmur Abdomen/GI: normal bowel sounds, non tender, soft (multiple scar on abdomen, no tenderness, no distend, rectal exam: some redness on left ramona-anal area, some tenderness on rectal wall, no active bleeding on rectal area, ) Extremities/Musculoskelatal: normal inspection, no calf tenderness, normal capillary refill Neurologic/Psych: no motor/sensory deficits, alert, normal mood/affect Skin: normal color, warm/dry, no rash Laboratory Results Last 24 Hours Test 12/24/16 22:14 12/24/16 22:47 12/24/16 23:52 12/25/16 00:14 White Blood Count 7.30 K/uL Red Blood Count 3.69 M/uL Hemoglobin 10.1 g/dL Hematocrit 30.0 % Mean Corpuscular Volume 81.3 fL Mean Corpuscular Hemoglobin 27.4 pg Mean Corpuscular Hemoglobin Concent 33.7 g/dl Platelet Count 168 K/uL Mean Platelet Volume 9.2 fL Neutrophils (%) (Auto) 87.6 % Lymphocytes (%) (Auto) 4.5 % Monocytes (%) (Auto) 7.5 % Eosinophils (%) (Auto) 0.0 % Basophils (%) (Auto) 0.1 % Neutrophils # (Auto) 6.39 K/uL Lymphocytes # (Auto) 0.33 K/uL Monocytes # (Auto) 0.55 K/uL Eosinophils # (Auto) 0.00 K/uL Basophils # (Auto) 0.01 K/uL RDW Standard Deviation 51.5 fL RDW Coefficient of Variation 17.0 % Immature Granulocyte % (Auto) 0.3 % Immature Granulocyte # (Auto) 0.02 K/uL Hypochromasia PRESENT Echinocytes 1+ Prothrombin Time 13.6 SECONDS Prothromb Time International Ratio 1.3 Activated Partial Thromboplast Time 39.1 SECONDS Partial Thromboplastin Ratio 1.5 Sodium Level 129 mmol/L Potassium Level 3.6 mmol/L Chloride Level 97 mmol/L Carbon Dioxide Level 19 mmol/L Anion Gap 13.0 mmol/L Blood Urea Nitrogen 50 mg/dl Creatinine 2.30 mg/dl Est Creatinine Clear Calc Drug Dose 28.5 ml/min Estimated GFR () 34.0 Estimated GFR (Non- 29.3 BUN/Creatinine Ratio 21.6 Random Glucose 137 mg/dl Osmolality 281 mOsm/kg Calcium Level 8.9 mg/dl Total Bilirubin 0.5 mg/dl Direct Bilirubin 0.2 mg/dl Aspartate Amino Transf (AST/SGOT) 14 U/L Alanine Aminotransferase (ALT/SGPT) 12 U/L Alkaline Phosphatase 147 U/L Total Creatine Kinase 110 U/L Creatine Kinase MB 1.5 ng/ml Creatine Kinase MB Ratio 1.4 Troponin I < 0.015 ng/ml Total Protein 7.8 gm/dl Albumin 2.4 gm/dl Lipase 79 U/L Bedside Lactic Acid Venous 2.61 mmol/L Lactic Acid Level 1.6 mmol/L Urine Color ORANGE Urine Appearance TURBID Urine pH 7.5 Urine Specific [place] 1.015 Urine Protein 2+ Urine Glucose (UA) NEG Urine Ketones NEG Urine Occult Blood 3+ Urine Nitrite POS Urine Bilirubin NEG Urine Urobilinogen NEG Urine Leukocyte Esterase LARGE Test 12/25/16 01:10 CT Scan abd + pelvis-IMPRESSION: 1. 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 2. There are postoperative changes from rectal resection with colocolonic anastomosis. Marked presacral soft tissue induration/thickening is likely treatment related. No bowel obstruction is seen. 3. The bladder is markedly thick-walled and contains intraluminal gas and debris. There is loss of the fat plane between the posterior bladder and the colon, and the appearance is highly concerning for a colovesicular fistula with superimposed cystitis. 4. There is moderate bilateral hydroureteronephrosis. There is gas present within the right renal collecting system, as well as bilateral perinephric stranding and urothelial thickening. The appearance is consistent with ascending urinary tract infection. Correlation with urinalysis will be required. 4. Cardiomegaly and trace pericardial effusion. 5. Emphysema. 6. Hepatomegaly and hepatic steatosis. 7. Marked splenomegaly. 8. Mild retroperitoneal lymphadenopathy. 9. Trace right pleural effusion. 10. There are small calcifications identified along the hepatic capsule. These are of indeterminant etiology and significance. Assessment & Plan IMP: Colovesicular fistular, perineal infection, retroperitoneal lymphadenopathy , UTI IV antibiotic to control infection pt may need PET scan to R/O cancer recurrence, I recommend colorectal surgeon to do surgery for colovesicular fistular, pt may need to transfer to higher level care, [facility]. will F/U Thanks,
[2016-12-25] MEDS: CLINDAMYCIN IV 900 MG in DEXTROSE 5% ADD-VANTAGE 100ML 100 ML IV SCH ×3 (03:25→17:37)
[2016-12-25] MEDS: PIPERACILL/TAZOBAC IV 3.375 GM in DEXTROSE 5% 100ML 100 ML IV SCH ×2 (05:17→13:29)
[2016-12-25 07:25] VITALS: BP 95/57; PULSE 100; TEMP 37.5; O2SAT 97
[2016-12-25 07:32] LABS: HEMATOCRIT 24.4 % (42-52); MEAN CELL VOLUME 81.6 fL (80-100); MEAN CORPUSCULAR HEMOGLOBIN 27.4 pg (25-34); MEAN CORPUSCULAR HGB CONC 33.6 g/dl (32-36); MEAN PLATELET VOLUME 9.3 fL (7.4-10.4); PLATELET COUNT 160 K/uL (130-400); RED BLOOD COUNT 2.99 M/uL (4.7-6.1); WHITE BLOOD COUNT 6.77 K/uL (4.8-10.8)
[2016-12-25 08:01] LABS: BUN/CREATININE RATIO 22.3 (10-20); CREATININE 1.8 mg/dl (0.60-1.40); POTASSIUM 3.4 mmol/L (3.5-5.1)
[2016-12-25 08:08] LABS: BASO % 0.1 %; BASO ABS # 0.01 K/uL (0-0.2); COMPLETE YES; DOHLE BODIES 1+; IG% 0.3 %; LYMPH % 7.5 %; LYMPH ABS # 0.51 K/uL (1.2-3.4); MONO % 9.6 %; NEUT % 82.5 %
--- NOTE | 2016-12-25 08:55 | Progress Note ---
Progress Note Date of Service Dec 25, 2016. Progress Note ID Consult Dictated # [id number] A/P: 1. Necrotizing Fasciitis, ? colovesicular fistula -Continue broad spectrum abx for now, follow cultures -Add caspo due to budding yeast on UA -Surgery following, await decision regarding OR vs transfer -Will follow, thank you
[2016-12-25] MEDS ORDERED: TAMSULOSIN HCL 0.4 MG CAP PO SCH (09:00)
[2016-12-25] MEDS ORDERED: METOPROLOL TARTRATE 25 MG TAB PO SCH (09:00)
[2016-12-25] MEDS ORDERED: CASPOFUNGIN INJ 70 MG in SODIUM CHLORIDE 0.9% 250ML 250 ML IV ONE (09:30)
[2016-12-25 09:38] VITALS: BP 106/64; PULSE 99
--- NOTE | 2016-12-25 09:46 | Urology Consultation ---
History General Date of Service: Dec 25, 2016. Primary Care Physician: Saeed MATTHEWS History of Present Illness 61y/o male w/ hx of colon ca s/p resection, chemo, XRT - 2 weeks of progress ill feeling - pneumaturia as well as liquid based stools - no fevers - no flank pain - progressive ramona-rectal pain CT on arrival - large amount of air in the bladder and extending up to the right kidney - had a right hip replacement that decreases the quality of the images, but it appears highly likely that there is a colovesical fistula - also has air in the right ramona-rectal area (subcutaneous) Laboratory Labs were reviewed and are within normal limits unless listed below. Labs are available in the chart and at [facility] Problem List Medical Problems: (1) Acute renal failure Status: Acute (2) Fourniers gangrene Status: Acute (3) GI bleed Status: Acute (4) Sepsis Status: Acute Past History BPH, cancer - colon, hypertension Past Surgical History: colectomy Family History non contrib in acute setting Social History Hx Tobacco Use In Past Year?: No Housing status: other ([facility]) Occupation status: other (incarcerated) History of MDRO No Allergies Coded Allergies: No Known Allergies (Unverified , 12/24/16) Medications Home Medications: Home Meds and Scripts Medications Dose Route/Sig Max Daily Dose Days Date Category Tylenol (Acetaminophen) 500 Mg Tab 1,000 Mg PO TID 12/24/16 Reported Flomax (Tamsulosin Hcl) 0.4 Mg Cap 0.4 Mg PO DAILY 12/24/16 Reported Lopressor (Metoprolol Tartrate) 25 Mg Tab 25 Mg PO BID 12/24/16 Reported Mobic (Meloxicam) 15 Mg Tab 15 Mg PO DAILY 12/24/16 Reported Inpatient Medications: Current Inpatient Medications Medications (Trade) Dose Ordered Sig/Kanchan Route Start Time Stop Time Status Last Admin Dose Admin Acetaminophen (Tylenol Tab) 650 mg Q4H PRN PO 12/25/16 00:00 01/24/17 00:00 Ondansetron HCl (Zofran Inj) 4 mg Q6H PRN IV 12/25/16 00:00 01/24/17 00:00 Acetaminophen 100 ml @ 400 mls/hr Q8H PRN IV 12/25/16 00:00 01/24/17 00:00 Pantoprazole Sodium 40 mg/ Syringe 10 ml @ 5 mls/min DAILY@11 IV 12/25/16 11:00 01/24/17 10:59 Piperacillin Sod/ Tazobactam Sod 3.375 gm/Dextrose 115 ml @ 30 mls/hr Q8H IV 12/25/16 04:00 01/04/17 03:59 12/25/16 05:17 30 MLS/HR Metoprolol Tartrate (Lopressor Tab) 25 mg BID PO 12/25/16 09:00 01/24/17 08:59 Tamsulosin HCl (Flomax Cap) 0.4 mg DAILY PO 12/25/16 09:00 01/24/17 08:59 Sodium Chloride 1,000 ml @ 150 mls/hr Q6H40M IV 12/25/16 01:15 01/24/17 01:14 12/25/16 01:49 150 MLS/HR Clindamycin Phosphate 900 mg/ Dextrose 106 ml @ 100 mls/hr Q8H IV 12/25/16 02:00 01/04/17 01:59 12/25/16 03:25 100 MLS/HR Vancomycin HCl (Consult) 1 ea UD PRN N/A 12/25/16 01:15 01/24/17 01:14 Morphine Sulfate (MoRPHine SULFATE INJ) 2 mg Q2H PRN IV 12/25/16 01:30 01/08/17 01:29 Morphine Sulfate (MoRPHine SULFATE INJ) 4 mg Q2H PRN IV 12/25/16 01:30 01/08/17 01:29 Vancomycin HCl 900 mg/Sodium Chloride 268 ml @ 125 mls/hr DAILY@0200 IV 12/26/16 02:00 01/04/17 01:59 Caspofungin 70 mg/ Sodium Chloride 260 ml @ 250 mls/hr 0930 ONCE IV 12/25/16 09:30 12/25/16 10:32 Caspofungin 50 mg/ Sodium Chloride 260 ml @ 250 mls/hr BID IV 12/25/16 09:00 01/04/17 08:59 UNV Review of Systems Review of Systems Constitutional: + problem reported (generally ill feeling), No fever Eyes: No see HPI, No blurred vision, No double vision, No eye pain, No loss of night vision, No problem reported Neurological: No see HPI, No dizzy, No passing out, No numbness/tingling, No seizures, No problem reported Endocrine: No see HPI, No excessive thirst, No too hot, No too cold, No tired/ sluggish, No problem reported Gastrointestinal: + abdominal pain, + diarrhea Cardiovascular: No see HPI, No heart murmur, No chest pain, No angina, No irregular heartbeat, No palpitations, No swelling ankles/feet, No problem reported Respiratory: No see HPI, No shortness of breath, No wheezing, No coughing up blood, No chronic cough, No problem reported Skin: + problem reported (tender with redness in the right ramona-rectal area), No see HPI, No rash, No boils, No dry skin Musculoskeletal: No see HPI, No joint pain, No neck pain, No back pain, No arthritis, No problem reported Blood / Lymphatic: No see HPI, No bleed easily, No bruise easily, No swollen glands, No problem reported Ears / Nose / Throat: No see HPI, No hearing loss, No sinus, No hoarse voice, No sore throat, No problem reported Male : + see HPI, + problem reported (pneumaturia) All Other Systems: Reviewed and Negative Physical Exam Vital Signs: Vital Signs Past 12 Hours Date Time Temp Pulse Resp B/P (MAP) Pulse Ox O2 Delivery O2 Flow Rate FiO2 12/25/16 07:25 37.5 100 20 95/57 (70) 97 Room Air 12/25/16 01:30 Room Air 12/25/16 01:30 Room Air 12/25/16 01:26 37.0 117 19 94/59 (71) 98 Room Air 12/25/16 00:38 36.7 101 25 98/62 98 12/25/16 00:36 101 25 98 12/25/16 00:31 98/62 12/25/16 00:23 98/52 12/24/16 23:36 113 22 12/24/16 23:31 109/68 12/24/16 23:25 118 22 95 12/24/16 23:20 118 21 12/24/16 23:10 103/66 95 12/24/16 22:50 124 27 12/24/16 22:47 95 Room Air 12/24/16 22:20 133 28 94 12/24/16 22:12 135 12/24/16 22:08 110/68 12/24/16 21:56 36.7 146 20 84/55 95 Room Air Physical Exam: General Appearance: no apparent distress (actually quite comfortable appearing) Eyes: bilateral eyes normal inspection ENT: hearing grossly normal Neck: no adenopathy Respiratory/Chest: no respiratory distress, no accessory muscle use Cardiovascular: no edema Gastrointestinal: Abdomen: normal abdomen (no rebound, no guarding. no CVAT. No suprapubic tenderness. Well healed midline scars as well as prior colostomy site) Bladder: normal bladder Genitourinary - Male: Anus / Perineum: pertinent finding (right sided induration. no crepitus felt. tense skin. extends over the medial portion of the glut. showing more mild induration extending towards the perineum but not reaching the scrotum. no draining sinus. no fluctuance.) Extremities: no pedal edema, no calf tenderness Neurologic/Psychiatric: alert Skin: normal color Lymphatic: no adenopathy Assessment & Plan Assessment & Plan Suspected colovesical fistula and perirectal gas forming skin infection Based on clinical exam and history - I suspect these are two distinct issues 1. Fistula - less acute - will require full interrogation with further imaging and likely cystoscopy - history of surgery and radiation puts him at very high risk of a fistula - if this proves to be a fistula, he will ultimately require surgical repair - likely best led by a colorectal surgeon 2. Infection - air in the subcutaneous tissues on CT - indurated, erythematous, and warm skin - concerning signs - clinically, he reports he is dramatically improved since last night - gen surg consult overnight - I will defer management of this issue to general surgery as it appears to be much more of a ramona-rectal process than a process
[2016-12-25] MEDS: ONDANSETRON INJ 2 MG/ML 2 ML VIAL IV PRN ×2 (10:01→16:26)
--- NOTE | 2016-12-25 10:28 | INFECT. DISEASE CONSULTATION ---
DATE OF CONSULTATION: 12/25/2016 REQUESTING PHYSICIAN: Dr. Roque. HISTORY OF PRESENT ILLNESS: This is a 61-year-old gentleman who is an inmate at [facility] who was admitted with pelvic pain and complains of air bubbles being produced while the patient was urinating and also complained of urine leakage through his rectum. It is unclear how long he was having these symptoms prior to admission. He does have a history of multiple abdominal surgeries which he states all stemmed from a ruptured appendix in [id number]. He did undergo a CAT scan of the abdomen in the Emergency Room last night which showed emphysematous changes, hepatic steatosis, bilateral hydronephrosis with gas in the right renal collecting system, bilateral perinephric stranding, postoperative changes from rectal resection, colocolonic anastomosis. There was also noted to be thickened bladder wall and a large volume of gas within the bladder lumen, there was loss of fat plane between the bladder and rectosigmoid colon, a colovesicular fistula could not be excluded. There was also gas within the soft tissue of the perineal region consistent with Patricia's gangrene, no abscess was noted. There were also compression fractures of the thoracolumbar spine. He was evaluated by the surgery and it was recommended that the patient be evaluated by a colorectal surgeon or be transferred to a higher level of care. He was started on multiple antibiotics consisting of vancomycin, Zosyn and clindamycin. He is tolerating these well. He has been afebrile and hemodynamically stable since admission; however, his blood pressure has been in the low 100s to high 90s systolic. He states he is feeling better today on my examination. He states his abdominal pain has diminished but is still present. He denies any fevers or chills. He denies any chest pain, cough, shortness of breath or any diarrhea. He states it is unclear if he will be going to the operating room at any time today. He denies any back pain. All remaining review of systems are reviewed and are unremarkable. PAST MEDICAL HISTORY: Significant for history of colon cancer, ruptured appendix and right hip replacement. FAMILY HISTORY: Noncontributory. ALLERGIES: There are no known drug allergies. SOCIAL HISTORY: Significant for daily tobacco use. There is no alcohol or drug use. He currently is an inmate at [facility]. PHYSICAL EXAMINATION: VITAL SIGNS: He is afebrile, pulse 100, respiratory rate 20, blood pressure 95/57, oxygen saturation is 97%-98% on room air. GENERAL: He is awake, alert and oriented x3. He is in no acute distress. HEENT: Mucous membranes are dry. HEART: Regular. LUNGS: Clear. ABDOMEN: Soft, nontender, nondistended. There are multiple abdominal scars from previous surgery. There is no edema. SKIN: Without rash. CURRENT MEDICATIONS: Include vancomycin, Protonix, Lopressor, Flomax, Zosyn, clindamycin, morphine, Zofran, Tylenol. LABORATORY STUDIES: CBC today reveals a white blood cell count of 6.7, hemoglobin 8.2, platelets are 160. Chemistry panel reveals a sodium of 135, potassium 3.4, chloride 104, bicarbonate 21, BUN 40, creatinine 1.8 down from 2.3 yesterday, glucose is 101. LFTs are within normal limits. On admission to the hospital, urinalysis had greater than 30 WBCs, budding yeast and 4+ bacteria. Hepatitis serologies are pending. Blood and urine cultures are pending. Imaging is as reviewed previously. ASSESSMENT AND PLAN: 1. 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 Certainly surgical intervention may very well be indicated. He will remain on broad-spectrum antibiotics and I will add caspofungin secondary to the finding of budding yeast on his urinalysis. His cultures are pending. I agree if there is any need for dedicated surgical evaluation, transfer to a higher level of care will be indicated. Thank you for this consultation.
[2016-12-25] MEDS ORDERED: PANTOprazole INJ 40 MG in SYRINGE 0 ML IV SCH (11:00)
--- NOTE | 2016-12-25 13:22 | Surgery Progress Note ---
Surgery Progress Note Date of Service Dec 25, 2016. Subjective + feeling well pt feels better, no fever, no diarrhea, no rectal bleeding, no abdominal pain, Objective Vital Signs: Date Time Temp Pulse Resp B/P (MAP) Pulse Ox O2 Delivery O2 Flow Rate FiO2 12/25/16 09:38 99 106/64 (78) 12/25/16 09:15 Room Air 12/25/16 07:25 37.5 100 20 95/57 (70) 97 Room Air 12/25/16 01:30 Room Air 12/25/16 01:30 Room Air 12/25/16 01:26 37.0 117 19 94/59 (71) 98 Room Air 12/25/16 00:38 36.7 101 25 98/62 98 12/25/16 00:36 101 25 98 12/25/16 00:31 98/62 12/25/16 00:23 98/52 12/24/16 23:36 113 22 12/24/16 23:31 109/68 12/24/16 23:25 118 22 95 12/24/16 23:20 118 21 12/24/16 23:10 103/66 95 12/24/16 22:50 124 27 12/24/16 22:47 95 Room Air 12/24/16 22:20 133 28 94 12/24/16 22:12 135 12/24/16 22:08 110/68 12/24/16 21:56 36.7 146 20 84/55 95 Room Air General Appearance: WD/WN Head: normocephalic Neck: supple, no JVD Respiratory/Chest: chest non-tender, lungs clear Cardiovascular: regular rate, rhythm, no edema, no gallop Abdomen: normal bowel sounds, non tender, non distended, soft (rectal exam : some redness left perianal area, no tenderness, ) Extremities: normal range of motion, non-tender, normal inspection Laboratory Results: Results Past 24 Hours Test 12/24/16 22:14 12/24/16 22:47 12/24/16 23:52 12/25/16 00:14 Range/Units White Blood Count 7.30 4.8-10.8 K/uL Red Blood Count 3.69 4.7-6.1 M/uL Hemoglobin 10.1 14.0-18.0 g/dL Hematocrit 30.0 42-52 % Mean Corpuscular Volume 81.3 80-100 fL Mean Corpuscular Hemoglobin 27.4 25-34 pg Mean Corpuscular Hemoglobin Concent 33.7 32-36 g/dl Platelet Count 168 130-400 K/uL Mean Platelet Volume 9.2 7.4-10.4 fL Neutrophils (%) (Auto) 87.6 % Lymphocytes (%) (Auto) 4.5 % Monocytes (%) (Auto) 7.5 % Eosinophils (%) (Auto) 0.0 % Basophils (%) (Auto) 0.1 % Neutrophils # (Auto) 6.39 1.4-6.5 K/uL Lymphocytes # (Auto) 0.33 1.2-3.4 K/uL Monocytes # (Auto) 0.55 0.11-0.59 K/uL Eosinophils # (Auto) 0.00 0-0.5 K/uL Basophils # (Auto) 0.01 0-0.2 K/uL RDW Standard Deviation 51.5 36.4-46.3 fL RDW Coefficient of Variation 17.0 11.5-14.5 % Immature Granulocyte % (Auto) 0.3 % Immature Granulocyte # (Auto) 0.02 0.00-0.02 K/uL Hypochromasia PRESENT Echinocytes 1+ Prothrombin Time 13.6 9.0-12.0 SECONDS Prothromb Time International Ratio 1.3 0.9-1.1 Activated Partial Thromboplast Time 39.1 21.0-31.0 SECONDS Partial Thromboplastin Ratio 1.5 Sodium Level 129 136-145 mmol/L Potassium Level 3.6 3.5-5.1 mmol/L Chloride Level 97 98-107 mmol/L Carbon Dioxide Level 19 21-32 mmol/L Anion Gap 13.0 3-11 mmol/L Blood Urea Nitrogen 50 7-18 mg/dl Creatinine 2.30 0.60-1.40 mg/dl Est Creatinine Clear Calc Drug Dose 28.5 ml/min Estimated GFR () 34.0 Estimated GFR (Non- 29.3 BUN/Creatinine Ratio 21.6 10-20 Random Glucose 137 70-99 mg/dl Osmolality 281 280-300 mOsm/kg Calcium Level 8.9 8.5-10.1 mg/dl Total Bilirubin 0.5 0.2-1 mg/dl Direct Bilirubin 0.2 0-0.2 mg/dl Aspartate Amino Transf (AST/SGOT) 14 15-37 U/L Alanine Aminotransferase (ALT/SGPT) 12 12-78 U/L Alkaline Phosphatase 147 45-117 U/L Total Creatine Kinase 110 39-308 U/L Creatine Kinase MB 1.5 0.5-3.6 ng/ml Creatine Kinase MB Ratio 1.4 0-3.0 Troponin I < 0.015 0-0.045 ng/ml Total Protein 7.8 6.4-8.2 gm/dl Albumin 2.4 3.4-5.0 gm/dl Lipase 79 73-393 U/L Bedside Lactic Acid Venous 2.61 0.90-1.70 mmol/L Lactic Acid Level 1.6 0.4-2.0 mmol/L Urine Color ORANGE Urine Appearance TURBID CLEAR Urine pH 7.5 4.5-7.5 Urine Specific [place] 1.015 1.000-1.030 Urine Protein 2+ NEG Urine Glucose (UA) NEG NEG Urine Ketones NEG NEG Urine Occult Blood 3+ NEG Urine Nitrite POS NEG Urine Bilirubin NEG NEG Urine Urobilinogen NEG NEG Urine Leukocyte Esterase LARGE NEG Urine WBC (Auto) >30 0-5 /hpf Urine RBC (Auto) 10-30 0-4 /hpf Urine Hyaline Casts (Auto) 1-5 0-5 /lpf Urine Epithelial Cells (Auto) >30 0-5 /lpf Urine Bacteria (Auto) 4+ NEG Urine Pathogenic Casts 0 /lpf Urine Yeast (Auto) BUDDING NONE PRSENT Test 12/25/16 07:02 Range/Units White Blood Count 6.77 4.8-10.8 K/uL Red Blood Count 2.99 4.7-6.1 M/uL Hemoglobin 8.2 14.0-18.0 g/dL Hematocrit 24.4 42-52 % Mean Corpuscular Volume 81.6 80-100 fL Mean Corpuscular Hemoglobin 27.4 25-34 pg Mean Corpuscular Hemoglobin Concent 33.6 32-36 g/dl Platelet Count 160 130-400 K/uL Mean Platelet Volume 9.3 7.4-10.4 fL Neutrophils (%) (Auto) 82.5 % Lymphocytes (%) (Auto) 7.5 % Monocytes (%) (Auto) 9.6 % Eosinophils (%) (Auto) 0.0 % Basophils (%) (Auto) 0.1 % Neutrophils # (Auto) 5.58 1.4-6.5 K/uL Lymphocytes # (Auto) 0.51 1.2-3.4 K/uL Monocytes # (Auto) 0.65 0.11-0.59 K/uL Eosinophils # (Auto) 0.00 0-0.5 K/uL Basophils # (Auto) 0.01 0-0.2 K/uL RDW Standard Deviation 52.0 36.4-46.3 fL RDW Coefficient of Variation 17.2 11.5-14.5 % Immature Granulocyte % (Auto) 0.3 % Immature Granulocyte # (Auto) 0.02 0.00-0.02 K/uL Dohle Bodies 1+ Sodium Level 135 136-145 mmol/L Potassium Level 3.4 3.5-5.1 mmol/L Chloride Level 104 98-107 mmol/L Carbon Dioxide Level 21 21-32 mmol/L Anion Gap 10.0 3-11 mmol/L Blood Urea Nitrogen 40 7-18 mg/dl Creatinine 1.80 0.60-1.40 mg/dl Est Creatinine Clear Calc Drug Dose 36.4 ml/min Estimated GFR () 45.7 Estimated GFR (Non- 39.5 BUN/Creatinine Ratio 22.3 10-20 Random Glucose 101 70-99 mg/dl Calcium Level 8.0 8.5-10.1 mg/dl Magnesium Level 2.0 1.8-2.4 mg/dl Hepatitis B Surface Antigen NEG NEG Hepatitis C Antibody Screen NEG NEG Hepatitis C Antibody NEG NEG Microbiology Results 12/24/16 Blood Culture, Received Pending 12/24/16 Blood Culture - Preliminary, Resulted Gram Negative Bacilli 12/25/16 MRSA DNA Surveillance Screen - Final, Complete Specimen Positive for MRSA by DNA Probe 12/25/16 Urine Culture, Received Pending Assessment & Plan IMP: Colovesicular fistular, perineal infection, retroperitoneal lymphadenopathy , UTI IV antibiotic to control infection pt may need PET scan to R/O cancer recurrence, GI consult for EGD and colonoscopy, to R/O cancer recurrence, pt also need barium enema study for fistula, I recommend colorectal surgeon to do surgery for colovesicular fistular, pt may need to transfer to higher level care, [facility]. will F/U
--- NOTE | 2016-12-25 14:08 | Pharmacy Progress Note ---
Pharmacy Antibiotic Consult Date of Service: Dec 25, 2016. 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 Subjective The patient is a 61 year old male admitted on Dec 24, 2016 at 23:48. Objective Height (Feet): 5 Height (Inches): 11.00 Weight (Kilograms): 60.500 Lab Results (24hrs): Test 12/24/16 22:14 12/24/16 22:47 12/24/16 23:52 12/25/16 00:14 White Blood Count 7.30 K/uL (4.8-10.8) Red Blood Count 3.69 M/uL (4.7-6.1) Hemoglobin 10.1 g/dL (14.0-18.0) Hematocrit 30.0 % (42-52) Mean Corpuscular Volume 81.3 fL (80-100) Mean Corpuscular Hemoglobin 27.4 pg (25-34) Mean Corpuscular Hemoglobin Concent 33.7 g/dl (32-36) Platelet Count 168 K/uL (130-400) Mean Platelet Volume 9.2 fL (7.4-10.4) Neutrophils (%) (Auto) 87.6 % Lymphocytes (%) (Auto) 4.5 % Monocytes (%) (Auto) 7.5 % Eosinophils (%) (Auto) 0.0 % Basophils (%) (Auto) 0.1 % Neutrophils # (Auto) 6.39 K/uL (1.4-6.5) Lymphocytes # (Auto) 0.33 K/uL (1.2-3.4) Monocytes # (Auto) 0.55 K/uL (0.11-0.59) Eosinophils # (Auto) 0.00 K/uL (0-0.5) Basophils # (Auto) 0.01 K/uL (0-0.2) RDW Standard Deviation 51.5 fL (36.4-46.3) RDW Coefficient of Variation 17.0 % (11.5-14.5) Immature Granulocyte % (Auto) 0.3 % Immature Granulocyte # (Auto) 0.02 K/uL (0.00-0.02) Hypochromasia PRESENT Echinocytes 1+ Prothrombin Time 13.6 SECONDS (9.0-12.0) Prothromb Time International Ratio 1.3 (0.9-1.1) Activated Partial Thromboplast Time 39.1 SECONDS (21.0-31.0) Partial Thromboplastin Ratio 1.5 Sodium Level 129 mmol/L (136-145) Potassium Level 3.6 mmol/L (3.5-5.1) Chloride Level 97 mmol/L (98-107) Carbon Dioxide Level 19 mmol/L (21-32) Anion Gap 13.0 mmol/L (3-11) Blood Urea Nitrogen 50 mg/dl (7-18) Creatinine 2.30 mg/dl (0.60-1.40) Est Creatinine Clear Calc Drug Dose 28.5 ml/min Estimated GFR () 34.0 Estimated GFR (Non- 29.3 BUN/Creatinine Ratio 21.6 (10-20) Random Glucose 137 mg/dl (70-99) Osmolality 281 mOsm/kg (280-300) Calcium Level 8.9 mg/dl (8.5-10.1) Total Bilirubin 0.5 mg/dl (0.2-1) Direct Bilirubin 0.2 mg/dl (0-0.2) Aspartate Amino Transf (AST/SGOT) 14 U/L (15-37) Alanine Aminotransferase (ALT/SGPT) 12 U/L (12-78) Alkaline Phosphatase 147 U/L (45-117) Total Creatine Kinase 110 U/L (39-308) Creatine Kinase MB 1.5 ng/ml (0.5-3.6) Creatine Kinase MB Ratio 1.4 (0-3.0) Troponin I < 0.015 ng/ml (0-0.045) Total Protein 7.8 gm/dl (6.4-8.2) Albumin 2.4 gm/dl (3.4-5.0) Lipase 79 U/L (73-393) Bedside Lactic Acid Venous 2.61 mmol/L (0.90-1.70) Lactic Acid Level 1.6 mmol/L (0.4-2.0) Urine Color ORANGE Urine Appearance TURBID (CLEAR) Urine pH 7.5 (4.5-7.5) Urine Specific [place] 1.015 (1.000-1.030) Urine Protein 2+ (NEG) Urine Glucose (UA) NEG (NEG) Urine Ketones NEG (NEG) Urine Occult Blood 3+ (NEG) Urine Nitrite POS (NEG) Urine Bilirubin NEG (NEG) Urine Urobilinogen NEG (NEG) Urine Leukocyte Esterase LARGE (NEG) Urine WBC (Auto) >30 /hpf (0-5) Urine RBC (Auto) 10-30 /hpf (0-4) Urine Hyaline Casts (Auto) 1-5 /lpf (0-5) Urine Epithelial Cells (Auto) >30 /lpf (0-5) Urine Bacteria (Auto) 4+ (NEG) Urine Pathogenic Casts /lpf (0) Urine Yeast (Auto) BUDDING (NONE PRSENT) Test 12/25/16 07:02 White Blood Count 6.77 K/uL (4.8-10.8) Red Blood Count 2.99 M/uL (4.7-6.1) Hemoglobin 8.2 g/dL (14.0-18.0) Hematocrit 24.4 % (42-52) Mean Corpuscular Volume 81.6 fL (80-100) Mean Corpuscular Hemoglobin 27.4 pg (25-34) Mean Corpuscular Hemoglobin Concent 33.6 g/dl (32-36) Platelet Count 160 K/uL (130-400) Mean Platelet Volume 9.3 fL (7.4-10.4) Neutrophils (%) (Auto) 82.5 % Lymphocytes (%) (Auto) 7.5 % Monocytes (%) (Auto) 9.6 % Eosinophils (%) (Auto) 0.0 % Basophils (%) (Auto) 0.1 % Neutrophils # (Auto) 5.58 K/uL (1.4-6.5) Lymphocytes # (Auto) 0.51 K/uL (1.2-3.4) Monocytes # (Auto) 0.65 K/uL (0.11-0.59) Eosinophils # (Auto) 0.00 K/uL (0-0.5) Basophils # (Auto) 0.01 K/uL (0-0.2) RDW Standard Deviation 52.0 fL (36.4-46.3) RDW Coefficient of Variation 17.2 % (11.5-14.5) Immature Granulocyte % (Auto) 0.3 % Immature Granulocyte # (Auto) 0.02 K/uL (0.00-0.02) Dohle Bodies 1+ Sodium Level 135 mmol/L (136-145) Potassium Level 3.4 mmol/L (3.5-5.1) Chloride Level 104 mmol/L (98-107) Carbon Dioxide Level 21 mmol/L (21-32) Anion Gap 10.0 mmol/L (3-11) Blood Urea Nitrogen 40 mg/dl (7-18) Creatinine 1.80 mg/dl (0.60-1.40) Est Creatinine Clear Calc Drug Dose 36.4 ml/min Estimated GFR () 45.7 Estimated GFR (Non- 39.5 BUN/Creatinine Ratio 22.3 (10-20) Random Glucose 101 mg/dl (70-99) Calcium Level 8.0 mg/dl (8.5-10.1) Magnesium Level 2.0 mg/dl (1.8-2.4) Hepatitis B Surface Antigen NEG (NEG) Hepatitis C Antibody Screen NEG (NEG) Hepatitis C Antibody NEG (NEG) Micro Results: Item Value Date Time MRSA DNA Surveillance Screen - Final Complete 12/25/16 0120 Nasal Specimen Positive for MRSA by DNA Probe Urine Culture Received 12/25/16 0014 Urine , Clean Catch Pending Blood Culture Received 12/24/16 2243 Blood Pending Blood Culture - Preliminary Resulted 12/24/16 2214 Blood Gram Negative Bacilli Recent Pertinent Medications Item Value Date Time Caspofungin 70 mg/ 260 ml @ 250 mls/hr 12/25/16 0930 Sodium Chloride 0930 ONCE/IV 12/25/16 1001 Caspofungin 50 mg/ 260 ml @ 250 mls/hr 12/26/16 0900 Sodium Chloride Q24H/IV Clindamycin 106 ml @ 100 mls/hr 12/25/16 0200 Phosphate 900 mg/ Q8H/IV 12/25/16 1135 Dextrose Daptomycin 500 mg/ 60 ml @ 100 mls/hr 12/24/16 2210 Sodium Chloride NOW STAT/IV 12/24/16 2340 Piperacillin Sod/ 4.5 gm 12/24/16 2210 Tazobactam Sod NOW STAT/IV 12/24/16 2301 (Zosyn Iv) Piperacillin Sod/ 115 ml @ 30 mls/hr 12/25/16 0400 Tazobactam Sod Q8H/IV 12/25/16 1329 3.375 gm/Dextrose Assessment & Plan Pharmacy has been consulted to dose and monitor 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 VANCOMYCIN Loading dose: Vancomycin 1500 mg (~25mg/kg) IV X 1 dose then: Vancomycin 900 mg (~15mg/kg) IV every 24 hours. * Estimated p'kinetic levels: ke= 0.0346/hr, t1/2= 20 hrs * Goal trough level estimate: between 15 - 20 mcg/mL. * Trough level has been ordered for: ~30 minutes before the 0200 dose. ZOSYN * Zosyn 4.5gm IV x 1 dose, then: * Zosyn 3.375gm IV every 8 hours extended infusion for CrCl greater than 20mL/ min (CrCl ~36mL/min). Pharmacy will continue to follow and will adjust dose/frequency as necessary. Thank you
[2016-12-25] MEDS ORDERED: ACET325T96 PO (14:27)
[2016-12-25] MEDS ORDERED: ZFRI4 IV (14:27)
[2016-12-25] MEDS ORDERED: [UNRECOGNIZED DRUG - CODE] IV (14:27)
[2016-12-25] MEDS ORDERED: SOFT1SOL45 IV (14:27)
[2016-12-25] MEDS ORDERED: PIPE1INJ11 IV (14:27)
[2016-12-25] MEDS ORDERED: VANC1INJ71 IV (14:27)
--- NOTE | 2016-12-25 14:30 | Discharge Instructions ---
Discharge Instructions Date of Service Dec 25, 2016. 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 Additional Information Patient informed of condition: Yes Advance Directives: Yes DNR: No Level of Care: Other (tertiary) Communicable Disease: Yes (contact for MRSA, gram negatives in blood) Prognosis: Other (requiring tertiary intervention) Current Hospital Diet Patient's current hospital diet: Discharge Diet Recommended Diet: N/A (currently NPO) Pending Studies Studies pending at discharge: no Medical Emergencies . Who to Call and When: Medical Emergencies: If at any time you feel your situation is an emergency, please call 911 immediately. . Non-Emergent Contact Non-Emergency issues call your: Primary Care Provider, Surgeon . . "Provider Documentation" section prepared by Layo Cobos. . Core Measure Problem Core Measures: None
[2016-12-25] MEDS ORDERED: CNCI50 IV (14:44)
--- NOTE | 2016-12-25 14:47 | Discharge Summary ---
Discharge Summary Date of Service Dec 25, 2016. Discharge Summary Admission Date: Dec 24, 2016 at 23:48 Discharge Disposition: Acute care facility ([facility]) Principal Diagnosis: perineal cellulitis Procedures: NEW FINDING - BLOOD CULTURE 1 OF 2 GROWING GRAM NEGATIVE RODS CT SCAN OF THE ABDOMEN AND PELVIS WITHOUT IV CONTRAST CLINICAL HISTORY: Generalized abdominal pain. Nausea and vomiting. Diarrhea. Hematochezia. History of colon cancer. COMPARISON STUDY: No priors. TECHNIQUE: CT scan of the abdomen and pelvis is performed from the lung bases to the proximal femora. Images are reviewed in the axial, sagittal, and coronal planes. IV contrast was not administered for this examination due to elevated serum creatinine. Note that the examination is suboptimal without oral and IV contrast. Automated dose control exposure was utilized. CT DOSE: 290.70 mGy.cm FINDINGS: Lung bases: The heart is mildly enlarged and there is a small pericardial effusion. The coronary arteries are densely calcified. A tiny hiatal hernia is noted. There is a trace right pleural effusion and bibasilar atelectasis. Emphysema is suggested. No airspace consolidation is identified typical for pneumonia. Liver: The unenhanced liver appears enlarged. The liver demonstrates diffusely diminished attenuation consistent with hepatic steatosis. There is no intrahepatic biliary ductal dilatation. Indeterminant calcifications are noted along the hepatic capsule. Gallbladder: Contracted. Spleen: The spleen is markedly enlarged, measuring 16.7 cm in length. Pancreas: The unenhanced pancreas is moderately atrophic and grossly unremarkable. Adrenal glands: Unremarkable. Kidneys: The unenhanced kidneys images are cortical atrophy. There is moderate bilateral hydroureteronephrosis. Gas is present within the right renal collecting system. A mild nonspecific bilateral perinephric stranding is observed. Urothelial thickening is seen bilaterally. There are no renal calculi identified. There is no evidence of contour deforming renal mass lesion. Abdominal vasculature: The abdominal aorta is normal in course and caliber noting moderate atherosclerotic calcification. Bowel: There are postoperative changes from rectal resection with colocolonic anastomosis. No bowel obstruction is identified. The appendix is not identified and reported surgically absent. Peritoneum: There is no intraperitoneal free air or abdominal ascites. There is evidence of previous ventral hernia repair. No organized fluid collection is seen to suggest abscess. Lymphadenopathy: There is retroperitoneal lymphadenopathy. Retroperitoneal lymph nodes measure up to 12 mm in short axis. Pelvic viscera: Evaluation of the pelvis is degraded by streak artifact from a right hip arthroplasty. The bladder wall is markedly thickened. A bladder diverticulum is suggested eccentric to the left on image #[id number]. There is a large volume of gas within the bladder lumen. There is loss of the fat plane between the bladder and the rectosigmoid colon. A colovesicular fistula is not excluded. The prostate gland is diminutive and not well assessed. There is marked presacral soft tissue thickening and induration which may be treatment related. There is marked induration of the perineal soft tissues, right greater than left. There are numerous foci of subcutaneous gas identified in the right perineal region consistent with Patricia's gangrene. There is no perineal fluid collection identified to suggest abscess. Skeletal structures: The skeletal structures are osteopenic. Lumbosacral spondylosis is observed. There are age indeterminant compression deformities of T10, T11, T12, L4, and L5. No lytic or blastic lesions are seen. A right hip arthroplasty is in place. 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 There are healed left-sided rib fractures. IMPRESSION: 1. 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 2. There are postoperative changes from rectal resection with colocolonic anastomosis. Marked presacral soft tissue induration/thickening is likely treatment related. No bowel obstruction is seen. 3. The bladder is markedly thick-walled and contains intraluminal gas and debris. There is loss of the fat plane between the posterior bladder and the colon, and the appearance is highly concerning for a colovesicular fistula with superimposed cystitis. 4. There is moderate bilateral hydroureteronephrosis. There is gas present within the right renal collecting system, as well as bilateral perinephric stranding and urothelial thickening. The appearance is consistent with ascending urinary tract infection. Correlation with urinalysis will be required. 4. Cardiomegaly and trace pericardial effusion. 5. Emphysema. 6. Hepatomegaly and hepatic steatosis. 7. Marked splenomegaly. 8. Mild retroperitoneal lymphadenopathy. 9. Trace right pleural effusion. 10. There are small calcifications identified along the hepatic capsule. These are of indeterminant etiology and significance. 11. Additional findings as above. Findings were discussed with Dr. Ramirez in the emergency department at the time of interpretation. Electronically signed by: Doyle Diallo M.D. 12/25/2016 12:22 AM Dictated Date/Time: 12/25/2016 12:06 AM disc to be burned with images to be sent to [facility] with patient Last 24 Hours Test 12/24/16 22:14 12/24/16 22:47 12/24/16 23:52 12/25/16 00:14 White Blood Count 7.30 K/uL Red Blood Count 3.69 M/uL Hemoglobin 10.1 g/dL Hematocrit 30.0 % Mean Corpuscular Volume 81.3 fL Mean Corpuscular Hemoglobin 27.4 pg Mean Corpuscular Hemoglobin Concent 33.7 g/dl Platelet Count 168 K/uL Mean Platelet Volume 9.2 fL Neutrophils (%) (Auto) 87.6 % Lymphocytes (%) (Auto) 4.5 % Monocytes (%) (Auto) 7.5 % Eosinophils (%) (Auto) 0.0 % Basophils (%) (Auto) 0.1 % Neutrophils # (Auto) 6.39 K/uL Lymphocytes # (Auto) 0.33 K/uL Monocytes # (Auto) 0.55 K/uL Eosinophils # (Auto) 0.00 K/uL Basophils # (Auto) 0.01 K/uL RDW Standard Deviation 51.5 fL RDW Coefficient of Variation 17.0 % Immature Granulocyte % (Auto) 0.3 % Immature Granulocyte # (Auto) 0.02 K/uL Hypochromasia PRESENT Echinocytes 1+ Prothrombin Time 13.6 SECONDS Prothromb Time International Ratio 1.3 Activated Partial Thromboplast Time 39.1 SECONDS Partial Thromboplastin Ratio 1.5 Sodium Level 129 mmol/L Potassium Level 3.6 mmol/L Chloride Level 97 mmol/L Carbon Dioxide Level 19 mmol/L Anion Gap 13.0 mmol/L Blood Urea Nitrogen 50 mg/dl Creatinine 2.30 mg/dl Est Creatinine Clear Calc Drug Dose 28.5 ml/min Estimated GFR () 34.0 Estimated GFR (Non- 29.3 BUN/Creatinine Ratio 21.6 Random Glucose 137 mg/dl Osmolality 281 mOsm/kg Calcium Level 8.9 mg/dl Total Bilirubin 0.5 mg/dl Direct Bilirubin 0.2 mg/dl Aspartate Amino Transf (AST/SGOT) 14 U/L Alanine Aminotransferase (ALT/SGPT) 12 U/L Alkaline Phosphatase 147 U/L Total Creatine Kinase 110 U/L Creatine Kinase MB 1.5 ng/ml Creatine Kinase MB Ratio 1.4 Troponin I < 0.015 ng/ml Total Protein 7.8 gm/dl Albumin 2.4 gm/dl Lipase 79 U/L Bedside Lactic Acid Venous 2.61 mmol/L Lactic Acid Level 1.6 mmol/L Urine Color ORANGE Urine Appearance TURBID Urine pH 7.5 Urine Specific [place] 1.015 Urine Protein 2+ Urine Glucose (UA) NEG Urine Ketones NEG Urine Occult Blood 3+ Urine Nitrite POS Urine Bilirubin NEG Urine Urobilinogen NEG Urine Leukocyte Esterase LARGE Urine WBC (Auto) >30 /hpf Urine RBC (Auto) 10-30 /hpf Urine Hyaline Casts (Auto) 1-5 /lpf Urine Epithelial Cells (Auto) >30 /lpf Urine Bacteria (Auto) 4+ Urine Pathogenic Casts /lpf Urine Yeast (Auto) BUDDING Test 12/25/16 07:02 White Blood Count 6.77 K/uL Red Blood Count 2.99 M/uL Hemoglobin 8.2 g/dL Hematocrit 24.4 % Mean Corpuscular Volume 81.6 fL Mean Corpuscular Hemoglobin 27.4 pg Mean Corpuscular Hemoglobin Concent 33.6 g/dl Platelet Count 160 K/uL Mean Platelet Volume 9.3 fL Neutrophils (%) (Auto) 82.5 % Lymphocytes (%) (Auto) 7.5 % Monocytes (%) (Auto) 9.6 % Eosinophils (%) (Auto) 0.0 % Basophils (%) (Auto) 0.1 % Neutrophils # (Auto) 5.58 K/uL Lymphocytes # (Auto) 0.51 K/uL Monocytes # (Auto) 0.65 K/uL Eosinophils # (Auto) 0.00 K/uL Basophils # (Auto) 0.01 K/uL RDW Standard Deviation 52.0 fL RDW Coefficient of Variation 17.2 % Immature Granulocyte % (Auto) 0.3 % Immature Granulocyte # (Auto) 0.02 K/uL Dohle Bodies 1+ Sodium Level 135 mmol/L Potassium Level 3.4 mmol/L Chloride Level 104 mmol/L Carbon Dioxide Level 21 mmol/L Anion Gap 10.0 mmol/L Blood Urea Nitrogen 40 mg/dl Creatinine 1.80 mg/dl Est Creatinine Clear Calc Drug Dose 36.4 ml/min Estimated GFR () 45.7 Estimated GFR (Non- 39.5 BUN/Creatinine Ratio 22.3 Random Glucose 101 mg/dl Calcium Level 8.0 mg/dl Magnesium Level 2.0 mg/dl Hepatitis B Surface Antigen NEG Hepatitis C Antibody Screen NEG Hepatitis C Antibody NEG Consultations: general surgery urology infectious disease CLARIFICATION OF BELOW - "SOFT LENS SOLUTION" -- THERE IS NO SALINE IN THE CPOE FOR MED REC A "DISCHARGE" THIS SALINE WAS THE CLOSEST I COULD FIND Medication Reconciliation New Medications: Clindamycin Phosphate (Clindamycin) 900 Mg/6 Ml Inj 900 MG IV Q8, #1 BAG Piperacillin Sodium-Tazobactam (Zosyn) 1 Inj Inj 3.375 GM IV Q8, #1 BAG Soft Lens Products (Saline Solution) 1 Marisel Marisel 150 ML IV UD, #1 BAG no NSS available in EMR For dc med list - is on 150ml/hr NSS Vancomycin HCl in Sodium Chlor (Vancomycin 500-0.9 mg/100Ml-%) 1 Inj Inj 900 MG IV Q24H, #1 BAG given @ 0200 Acetaminophen Tab (Tylenol) 325 Mg Tab 650 MG PO Q4H PRN for Pain or Fever, #1 TAB Ondansetron (Ondansetron Hcl) 2 Mg/Ml Inj 4 MG IV Q6H PRN for Nausea, #1 VIAL Continued Medications: Metoprolol Tartrate (Lopressor) (Lopressor) 25 Mg Tab 25 MG PO BID, TAB Tamsulosin Hcl (Flomax) 0.4 Mg Cap 0.4 MG PO DAILY, CAP Discontinued Medications: Acetaminophen (Tylenol) 500 Mg Tab 1000 MG PO TID, TAB Meloxicam (Mobic) 15 Mg Tab 15 MG PO DAILY, TAB Discharge Exam Physical Exam: General Appearance: no apparent distress (fatigued appearing but no true distress) Eyes: EOMI ENT: hearing grossly normal Neck: trachea midline Respiratory/Chest: no respiratory distress, no accessory muscle use Abdomen / GI: + pertinent finding (R buttock medially and towards rectum erythema and induration, no crepitis. 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, + pertinent finding (thin w some muscle wasting, chronic appearance) Skin: normal color, warm/dry Hospital Course Colovesical fistula with cystitis/right side perineal cellulitis with concern on developing Patricia's gangrene -had colon resection for colon cancer approximately [id number] - notes "first they started in [place], then they finished at [facility]" -notes to the best of his knowledge he is cancer-free -presented with abdominal pain, had some chills - found to have infection as above noted, as well as findings clinically and radiographically c/w colovesical fistula -stablized on abx, appearing improving clinically, however, with concern on fistula as possible underlying cause of cellulitis - definitive treatment here not possible. [place] [facility] [place] transfer; for urgent eval since gas in perineal soft tissue --> transferred via ACLS -no fever or white count, does meet SIRS criteria (and therefore sepsis) by HR and RR on admission --> does appear improving probable colovesical fistula -less acute, given main clinical picture of concern is perineal cellulitis as above; however, does have pneumaturia, appearance of urine in stools, etc -infectious disease added caspofungin due to budding yeast on UA gram negative bacteremia --new finding, undoubtedly relates to above situation. on appropriate coverage pending final ID&S, clinically appears improved Acute renal failure/hyponatremia-continue to hydrate with normal saline 150 ML' s per hour. Follow serial BMP, has improved nicely overnight. for clarification purposes, must treat as though he had severe sepsis (SIRS + site of infection + renal failure) although clinically appears just as c/w dehydration from feeling ill as actual septic physiology since no shock Bilateral Hydroureterohydronephrosis/chronic bladder wall thickening/renal insufficiency--secondary to above process. Hepatomegaly/splenomegaly-- hep A and B IgM pending; hep B sAg and hep C Ab negative Left femoral head avascular necrosis-- orthopedics eval after above is treated. T10, T11, T12, L4 and L5 age-indeterminate compression fractures--no signs of bony lytic or blastic lesions on CT. outpatient osteoporosis w/u DVT proph - lovenox (for surgical purposes, this has been ordered, but dose has not yet actually been given) Total Time Spent: Greater than 30 minutes This includes examination of the patient, discharge planning, medication reconciliation, and communication with other providers. Discharge Instructions Please refer to the electronic Patient Visit Report (Discharge Instructions) for additional information. Additional Copies To Lissette Ramírez M.D.; Bryant Frias M.D.
[2016-12-25 15:33] VITALS: BP 102/63; PULSE 97; TEMP 38; O2SAT 94
[2016-12-25 16:11] VITALS: O2SAT 94
[2016-12-26] MEDS ORDERED: VANCOMYCIN INJ 900 MG in SODIUM CHLORIDE 0.9% 250ML 250 ML IV SCH (02:00)
[2016-12-26] MEDS ORDERED: ENOXAPARIN 40 MG/0.4 ML SYR SQ SCH (09:00)
[2016-12-26] MEDS ORDERED: CASPOFUNGIN INJ 50 MG in SODIUM CHLORIDE 0.9% 250ML 250 ML IV SCH (09:00)
[2016-12-28] MEDS ORDERED: VANCOMYCIN TROUGH SCH (01:30)
== END 2016-12-25 19:45 | disposition short-term general hospital (02) | DRG 872 ==
LOC: C.EDB 21:51 → C.MS2W 23:48 → ENRESERV 12-25 00:07
PROVIDERS: ADMIT Hospitalist; ATTEND Family Medicine
DX: A41.50 Gram-negative sepsis, unspecified (principal); B37.41 Candidal cystitis and urethritis; N32.1 Vesicointestinal fistula; L03.315 Cellulitis of perineum; N17.9 Acute kidney failure, unspecified; E87.1 Hypo-osmolality and hyponatremia; N13.30 Unspecified hydronephrosis; M87.9 Osteonecrosis, unspecified; M48.54XA Collapsed vertebra, not elsewhere classified, thoracic region, initial encounter for fracture; M48.56XA Collapsed vertebra, not elsewhere classified, lumbar region, initial encounter for fracture; Z68.1 Body mass index [BMI] 19.9 or less, adult; R65.20 Severe sepsis without septic shock; N49.3 Fournier gangrene; E86.0 Dehydration; R16.2 Hepatomegaly with splenomegaly, not elsewhere classified; R59.0 Localized enlarged lymph nodes; R63.4 Abnormal weight loss; N40.1 Benign prostatic hyperplasia with lower urinary tract symptoms; F17.200 Nicotine dependence, unspecified, uncomplicated; Z85.038 Personal history of other malignant neoplasm of large intestine; Z96.641 Presence of right artificial hip joint; Z92.3 Personal history of irradiation; Z92.21 Personal history of antineoplastic chemotherapy; Z79.1 Long term (current) use of non-steroidal anti-inflammatories (NSAID); Z79.899 Other long term (current) drug therapy

== ENCOUNTER 2017-01-11 23:58 | Emergency (ER) | payer OTHER ==
[~2017-01-11] VITALS: Ht 180.3 cm; Wt 60.0 kg
[~2017-01-11 23:58] MED LIST: ACET325T96 PO; CNCI50 IV; METO25TA56 PO; PIPE1INJ11 IV; SOFT1SOL45 IV; TAMS0.4C38 PO; VANC1INJ71 IV; ZFRI4 IV; [UNRECOGNIZED DRUG - CODE] IV
[2017-01-12 00:08] VITALS: TEMP 36.3; Ht 180.3 cm; Wt 60.0 kg
--- NOTE | 2017-01-12 01:26 | EMERGENCY ROOM VISIT NOTE ---
History Report prepared by Rocio: Gaby Gonzalez Under the Supervision of: Dr. Autumn Juarez D.O. First contact with patient: 00:51 Chief Complaint: OTHER COMPLAINT Stated Complaint: BAG PULLED OUT OF KIDNEY History of Present Illness The patient is a 61 year old male who presents to the Emergency Room with complaints of nephrostomy tube malfunction occurring today. The patient was draining his colostomy bag when he tripped and the left nephrostomy tube broke. He has [address], one leading to each kidney. The tube on the right side is still intact. The tubes were first placed on 12/27/2016 after the patient was diagnosed with a colovesicle fistula. The tubes were supposed to be taken out at some point but he is unsure about the date. He also reports gangrene of his abdomen. He started to produce a small amount of urine a few days ago. He currently rates a pain intensity of 8/10. He denies fevers, chills , or any other complaints. Source of History: patient Onset: today Position: back Symptom Intensity: 8/10 Quality: other (nephrostomy tube malfunction) Associated Symptoms: No fevers, No chills Review of Systems The patient denies any difficulties with the colostomy or nephrostomy tubes. He denies any other symptoms. Past Medical & Surgical Medical Problems: (1) Cellulitis of left upper limb (2) History of colon cancer Surgical Problems: (1) History of right hip replacement Family History Patient reports no known family medical history. Social History Smoking Status: Never Smoker Drug Use: none Housing Status: other Occupation Status: other Current/Historical Medications Scheduled Caspofungin (Cancidas), 50 MG IV Q24H Clindamycin Phosphate (Clindamycin), 900 MG IV Q8 Metoprolol Tartrate (Lopressor) (Lopressor), 25 MG PO BID Piperacillin Sodium-Tazobactam (Zosyn), 3.375 GM IV Q8 Soft Lens Products (Saline Solution), 150 ML IV UD Tamsulosin Hcl (Flomax), 0.4 MG PO DAILY Vancomycin HCl in Sodium Chlor (Vancomycin 500-0.9 mg/100Ml-%), 900 MG IV Q24H Scheduled PRN Acetaminophen Tab (Tylenol), 650 MG PO Q4H PRN for Pain or Fever Ondansetron (Ondansetron Hcl), 4 MG IV Q6H PRN for Nausea Allergies Coded Allergies: No Known Allergies (Unverified , 12/24/16) Physical Exam Vital Signs Date Time Temp Pulse Resp B/P (MAP) Pulse Ox O2 Delivery O2 Flow Rate FiO2 01/12/17 02:20 62 20 94/45 99 01/12/17 00:08 36.3 74 16 89/64 95 Room Air Physical Exam Back: Right nephrostomy tube in place, left nephrostomy tube in place but tubing is broken. Medical Decision & Procedures Medications Administered Medications (Trade) Dose Ordered Sig/[place] Route Start Time Stop Time Status Last Admin Dose Admin Oxycodone HCl (Roxicodone Immediate Rel Tab) 5 mg NOW STAT PO 01/12/17 02:00 01/12/17 02:04 DC 01/12/17 02:07 5 MG Procedure Oxycodone HCl 5 mg PO ED Course 0051: Past medical records reviewed. The patient was evaluated in room C06. A complete history and physical exam was performed. 0121: I discussed the patient's case with Dr. Salazar, colorectal surgeon with [facility]. He recommended removing the broken tube. They will contact the [facility] tomorrow to discuss if he needs to come in tomorrow or if he can wait to follow up on Monday as scheduled. 0155: Upon reevaluation, the patient is resting comfortably. I removed sutures and pulled out left nephrostomy tube. I discussed findings and results with him. He verbalized agreement of the treatment plan. He was discharged home. 0200: Oxycodone HCl 5 mg PO Medical Decision The patient presents to the Emergency Room with complaints of nephrostomy tube malfunction. I attest that I have personally reviewed the patient's current medication list. Patient was found to have a low blood pressure on screening and does not require follow-up. This is a 61-year-old male patient presents to the emergency department after breaking his left of her ostomy tube. The tubing has broken. I removed the sutures and the tube at the direction of colorectal surgery at [place]. A sterile dressing was placed over the site with a Tegaderm in place. Consults Time Called: 0118 Consulting Physician: Dr. Salazar, colorectal surgeon with [facility] Returned Call: [phone] I discussed the patient's case with Dr. Salazar, colorectal surgeon with [facility]. He recommended removing the tube. They will contact the [facility] tomorrow to discuss if he needs to come in tomorrow or if he will need to follow up on Monday as scheduled. Impression Primary Impression: Nephrostomy tube displaced Scribe Attestation The scribe's documentation has been prepared under my direction and personally reviewed by me in its entirety. I confirm that the note above accurately reflects all work, treatment, procedures, and medical decision making performed by me. Departure Information Dispostion Home / Self-Care Referrals Saeed MATTHEWS (PCP) Forms HOME CARE DOCUMENTATION FORM, IMPORTANT VISIT INFORMATION, WORK / SCHOOL INSTRUCTIONS Patient Instructions My [facility] Additional Instructions Rest. Leave sterile bandage in place. [place] surgery will contact [facility] later today to discuss follow up plans
[2017-01-12] MEDS ORDERED: OXYCODONE HCL IR 5 MG TAB (IMMEDIATE RELEASE) PO STA (02:00)
[2017-01-12 02:20] VITALS: BP 94/45; PULSE 62; O2SAT 99
== END 2017-01-12 02:22 | disposition home or self-care (01) ==
LOC: C.EDB 01-12 → C.EDC 01-12 02:22
DX: T83.022A Displacement of nephrostomy catheter, initial encounter (principal); W18.09XA Striking against other object with subsequent fall, initial encounter; Z85.038 Personal history of other malignant neoplasm of large intestine; Z96.641 Presence of right artificial hip joint; Z79.899 Other long term (current) drug therapy

== ENCOUNTER 2017-01-14 11:06 | Inpatient (IN) | payer OTHER ==
[2017-01-14] VITALS (14 sets, daily range): BP systolic 93–132; BP diastolic 55–97; PULSE 59–72; TEMP 36.1–36.8; O2SAT 97–100; Ht 180.3 cm; Wt 60.7 kg
[~2017-01-14] VITALS: Ht 180.3 cm; Wt 60.7 kg
[2017-01-14] MEDS ORDERED: SODIUM CHLORIDE 0.9% 1000ML 1,000 ML IV STA ×2 (11:43→12:59)
--- NOTE | 2017-01-14 11:46 | EMERGENCY ROOM VISIT NOTE ---
History First contact with patient: 11:40 Chief Complaint: GI ASSESSMENT Stated Complaint: VOMIT/COFFEE GOUND / [facility] Nursing Triage Summary: Pt arrives BLS from [facility] Pt reports he had coffee ground emesis x2 last night and this morning Pt has colostomy and staff reports hem positive Pt also has nephrostomy tube in place History of Present Illness The patient is a 61 year old male who presents to the Emergency Room with complaints of hematemesis and heme positive stool. Vomited 2:30am and 6:30am - coffee ground emesis, dark. Stool is dark - tested at [facility] and was heme positive. He notes epigastric pain after eating for the past 2 days for which he took tums and it relieved the pain. He denies any chest pain, dizziness, presyncope, syncope, shortness of breath. 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 He was emergently transferred to [facility] SICU. Underwent debridement of perineum 12/26. Nephrostomy tube placement and creation of transverse loop colostomy 12/27 Latest Hgb was 10.3 on d/c from [place] (2016). He was discharged on 01/01/17 with ciprofloxacin and metronidazole He has follow up with colorectal (Keke SERNA) on 01/16/2017 @ 11:15am. The patient reports his nephrostomy tubes are working well. Review of Systems See HPI for pertinent positives & negatives. A total of 10 systems reviewed and were otherwise negative. Past Medical/Surgical History Medical Problems: (1) Cellulitis of left upper limb (2) Diabetes (3) Patricia's gangrene (4) History of colon cancer (5) Rectal cancer Surgical Problems: (1) History of right hip replacement (2) Nephrostomy status (3) Status post ablation of atrial fibrillation Family History Patient reports no known family medical history. Social History Smoking Status: Former Smoker Drug Use: none Housing Status: other Occupation Status: other Current/Historical Medications Scheduled Acetaminophen (Tylenol), 1,000 MG PO TID Aspirin (Aspirin), 1 TAB PO BID Dakin's Solution Full Strength (Dakins Solution Full Stre), 1 EA TOP BID Enoxaparin (Lovenox), 0.4 ML SQ DAILY Meloxicam (Mobic), 15 MG PO DAILY Metoprolol Tartrate (Lopressor) (Lopressor), 25 MG PO BID Multiple Vitamin (Thera), 1 TAB PO DAILY Tamsulosin Hcl (Flomax), 0.8 MG PO PM Scheduled PRN Ondansetron Hcl (Zofran), 8 MG PO Q8 PRN for Nausea or Vomiting Oxycodone Hcl (Oxycodone Hcl), 1 CAP PO QID PRN for Pain Allergies Coded Allergies: No Known Allergies (Unverified , 01/14/17) Physical Exam Vital Signs Date Time Temp Pulse Resp B/P (MAP) Pulse Ox O2 Delivery O2 Flow Rate FiO2 01/14/17 14:09 36.6 67 15 115/69 98 01/14/17 13:39 36.7 63 16 125/97 98 01/14/17 13:32 65 15 117/76 95 Room Air 01/14/17 13:21 36.6 61 16 121/72 100 01/14/17 12:51 60 16 126/68 98 Room Air 01/14/17 12:13 60 16 109/66 98 Room Air 01/14/17 11:38 98 Room Air 01/14/17 11:31 98 Room Air 01/14/17 11:30 65 16 97/57 98 Room Air 01/14/17 11:30 64 01/14/17 11:14 37.1 58 16 107/63 100 Room Air Physical Exam VITAL SIGNS: were reviewed as above GENERAL:no acute distress SKIN: Appears pale but warm peripheries HEAD: Normocephalic and atraumatic EYES: extraocular muscles intact, pupils equal and reactive to light OROPHARYNX: non erythematous, dry mucus membranes NECK: Supple, no adenopathy, no JVD LUNGS: Scattered fine crackles at bases, otherwise clear to auscultation, no respiratory distress, no accessory muscle use HEART: Slow rate and rhythm, quiet heart sounds 1+2, no murmurs, cap refill 4-5 seconds ABDOMEN: Soft, epigastric tenderness on palpation with guarding but no rebound, bowel sounds normal, black stool in colostomy bag, right nephrostomy tube draining well EXTREMITIES: Warm and well perfused, no calf tenderness/swelling, no pitting pedal edema. NEUROLOGICALLY: Awake alert and oriented without gross focal deficit. There is no facial droop. Speech is clear. Vision is grossly normal. MUSCULOSKELETAL: Good muscle tone. No evidence of trauma Medical Decision & Procedures ER Provider Diagnostic Interpretation: PA CHEST WITH ABDOMINAL SERIES CLINICAL HISTORY: Epigastric abdominal pain. FINDINGS: A PA chest radiograph is compared to study dated 12/24/2016. The cardiomediastinal silhouette is unremarkable. There is atherosclerotic calcification of the thoracic aorta. Emphysema and chronic interstitial thickening are similar to previous. No airspace consolidation or pleural effusion is identified. No pneumothorax is seen. The skeletal structures appear osteopenic. Healed rib fractures are noted. Atherosclerotic calcification is noted in the carotid bulbs. Supine and erect abdominal radiographs are correlated with abdominal CT dated 12/25/2016. There is a nonobstructed abdominal bowel gas pattern noting moderate to severe constipation. No evidence of intraperitoneal free air is seen. A right percutaneous nephrostomy is new from 12/25/2016. Extensive surgical mesh is noted in the ventral abdomen. An ostomy is identified in the left mid abdomen. There is advanced atherosclerotic calcification of the abdominal aorta. Suture material projects over the right upper quadrant. The lumbosacral spine and bony pelvis appear intact. A right hip arthroplasty is in place. A large cortical defect in the left ilium is unchanged. IMPRESSION: 1. Emphysema with no acute cardiopulmonary abnormality. 2. Nonobstructed abdominal bowel gas pattern noting moderate to severe constipation. 3. A right-sided percutaneous nephrostomy tube and an ostomy are new from 12/25/2016. 4. No intraperitoneal free air is seen. 5. Additional findings as above. Electronically signed by: Doyle Diallo M.D. 01/14/2017 1:20 PM Dictated Date/Time: 01/14/2017 1:15 PM Laboratory Results 01/14/17 11:23 01/14/17 11:23 Test 01/14/17 11:23 Red Blood Count 2.57 M/uL (4.7-6.1) Mean Corpuscular Volume 84.0 fL (80-100) Mean Corpuscular Hemoglobin 27.6 pg (25-34) Mean Corpuscular Hemoglobin Concent 32.9 g/dl (32-36) RDW Standard Deviation 52.0 fL (36.4-46.3) RDW Coefficient of Variation 16.8 % (11.5-14.5) Mean Platelet Volume 9.0 fL (7.4-10.4) Prothrombin Time 11.6 SECONDS (9.0-12.0) Prothromb Time International Ratio 1.1 (0.9-1.1) Activated Partial Thromboplast Time 25.7 SECONDS (21.0-31.0) Partial Thromboplastin Ratio 1.0 Anion Gap 8.0 mmol/L (3-11) Est Creatinine Clear Calc Drug Dose 51.0 ml/min Estimated GFR () 74.7 Estimated GFR (Non- 64.4 BUN/Creatinine Ratio 27.1 (10-20) Calcium Level 9.2 mg/dl (8.5-10.1) Total Bilirubin 0.2 mg/dl (0.2-1) Aspartate Amino Transf (AST/SGOT) 18 U/L (15-37) Alanine Aminotransferase (ALT/SGPT) 13 U/L (12-78) Alkaline Phosphatase 77 U/L (45-117) Total Protein 7.8 gm/dl (6.4-8.2) Albumin 2.5 gm/dl (3.4-5.0) Globulin 5.3 gm/dl (2.5-4.0) Albumin/Globulin Ratio 0.5 (0.9-2) Medications Administered Medications (Trade) Dose Ordered Sig/[place]chan Route Start Time Stop Time Status Last Admin Dose Admin Sodium Chloride 1,000 ml @ 999 mls/hr Q1H1M STAT IV 01/14/17 11:43 01/14/17 12:43 DC 01/14/17 11:56 999 MLS/HR Ondansetron HCl (Zofran Inj) 4 mg NOW STAT IV 01/14/17 11:52 01/14/17 11:54 DC 01/14/17 12:01 4 MG Pantoprazole Sodium 80 mg/ Dextrose 120 ml @ 480 mls/hr TODAY@1200 IV 01/14/17 12:00 01/14/17 12:14 DC 01/14/17 12:20 480 MLS/HR Pantoprazole Sodium 40 mg/ Dextrose 100 ml @ 20 mls/hr Q5H IV 01/14/17 12:15 01/14/17 17:14 01/14/17 12:51 20 MLS/HR Sodium Chloride 1,000 ml @ 200 mls/hr Q5H STAT IV 01/14/17 12:59 01/14/17 17:58 01/14/17 13:11 200 MLS/HR ECG Indication: vomiting Rate (beats per minute): 57 Rhythm: sinus bradycardia Findings: no acute ischemic change Change: no significant change ((01/23/17) Sinus bradycardia has replaced sinus tachycardia) ED Course 11:45am Complete history and physical performed. 12:15pm Discussed with Dr Ragsdale who separately performed history and physical 12:40pm Discussed with Dr Gonzalez who will evaluate the patient for admission Medical Decision Prior records/ancillary studies reviewed. Triage Nursing notes reviewed. Additional history obtained from the patient and [facility] records The patient's history was concerning for nausea, vomiting and abdominal pain. Differential diagnosis: Etiologies such as gastroenteritis, food borne illness, infections, appendicitis , diverticulitis, inflammatory bowel disease, obstruction, GI bleed, biliary pathology, as well as others were entertained. Physical examination findings: As above. Abdominal examination revealed epigastric pain with guarding but no rebound tenderness. Vital signs reviewed and revealed hypotension 97/57. ER treatment provided: IV hydration 1 L NSS. Ondansetron 4mg IV Pantoprazole bolus + IV drip Diagnostics interpretation by me: The labs revealed significant anemia Hgb 7.1, BUN 33. Imaging studies: Constipation, non obstructed bowel gas pattern Consultation: A consultation was placed with the hospitalist (Dr Gonzalez). The case was discussed and diagnostics were reviewed. The patient was evaluated in the ER for further treatment. This appears to be consistent with an acute UGI bleed. By the evaluation outlined above emergent etiologies such as appendicitis, diverticulitis, obstruction, cardiac sources, mesenteric ischemia, aortic pathology, inflammatory bowel disease, renal colic, biliary pathology, UTI, as well as others were deemed relatively unlikely. The patient was informed about the findings as listed above. All questions were answered and he was pleased with the treatment. Consults Time Called: 12:40 Consulting Physician: Dr Gonzalez ([facility] Hospitalist) Returned Call: 12:40 Impression Primary Impression: Anemia Additional Impressions: Hematemesis Heme positive stool Constipation Departure Information Dispostion Being Evaluated By Hospitalist Condition FAIR [facility] Patient Instructions My [facility] Resident Tracking Resident Involvement: Resident Care Provided Care Provided: Adult ED Problem Qualifiers Primary Impression: Anemia Anemia type: unspecified type Qualified Codes: D64.9 - Anemia, unspecified Additional Impressions: Hematemesis Nausea presence: with nausea Qualified Codes: K92.0 - Hematemesis; R11.0 - Nausea
[2017-01-14 11:47] LABS: HEMATOCRIT 21.6 % (42-52); MEAN CORPUSCULAR HEMOGLOBIN 27.6 pg (25-34); MEAN CORPUSCULAR HGB CONC 32.9 g/dl (32-36); PLATELET COUNT 286 K/uL (130-400); RED BLOOD COUNT 2.57 M/uL (4.7-6.1); WHITE BLOOD COUNT 4.49 K/uL (4.8-10.8)
[2017-01-14] MEDS ORDERED: ONDANSETRON INJ 2 MG/ML 2 ML VIAL IV STA (11:52)
[2017-01-14 11:55] LABS: INR 1.1 (0.9-1.1); PROTHROMBIN TIME (PATIENT) 11.6 SECONDS (9.0-12.0)
[2017-01-14 11:59] LABS: BUN/CREATININE RATIO 27.1 (10-20); CALCIUM 9.2 mg/dl (8.5-10.1); CREATININE 1.2 mg/dl (0.60-1.40); POTASSIUM 4.4 mmol/L (3.5-5.1)
[2017-01-14] MEDS ORDERED: PANTOprazole INJ 80 MG in DEXTROSE 5% 100ML IV SCH (12:00)
[2017-01-14 12:02] LABS: ALB/GLOB RATIO 0.5 (0.9-2)
[2017-01-14] MEDS ORDERED: PANTOprazole INJ 40 MG in DEXTROSE 5% 100ML IV SCH (12:15)
--- NOTE | 2017-01-14 13:22 | DIAGNOSTIC IMAGING REPORT ---
PA CHEST WITH ABDOMINAL SERIES CLINICAL HISTORY: Epigastric abdominal pain. FINDINGS: A PA chest radiograph is compared to study dated 12/24/2016. The cardiomediastinal silhouette is unremarkable. There is atherosclerotic calcification of the thoracic aorta. Emphysema and chronic interstitial thickening are similar to previous. No airspace consolidation or pleural effusion is identified. No pneumothorax is seen. The skeletal structures appear osteopenic. Healed rib fractures are noted. Atherosclerotic calcification is noted in the carotid bulbs. Supine and erect abdominal radiographs are correlated with abdominal CT dated 12/25/2016. There is a nonobstructed abdominal bowel gas pattern noting moderate to severe constipation. No evidence of intraperitoneal free air is seen. A right percutaneous nephrostomy is new from 12/25/2016. Extensive surgical mesh is noted in the ventral abdomen. An ostomy is identified in the left mid abdomen. There is advanced atherosclerotic calcification of the abdominal aorta. Suture material projects over the right upper quadrant. The lumbosacral spine and bony pelvis appear intact. A right hip arthroplasty is in place. A large cortical defect in the left ilium is unchanged. IMPRESSION: 1. Emphysema with no acute cardiopulmonary abnormality. 2. Nonobstructed abdominal bowel gas pattern noting moderate to severe constipation. 3. A right-sided percutaneous nephrostomy tube and an ostomy are new from 12/25/2016. 4. No intraperitoneal free air is seen. 5. Additional findings as above. Electronically signed by: Doyle Diallo M.D. 01/14/2017 1:20 PM Dictated Date/Time: 01/14/2017 1:15 PM
[2017-01-14] MEDS ORDERED: ASPI325T45 PO (13:23)
[2017-01-14] MEDS ORDERED: ACET-1256 PO (13:23)
[2017-01-14] MEDS ORDERED: [UNRECOGNIZED DRUG - CODE] TOP (13:23)
[2017-01-14] MEDS ORDERED: MELO15TA4 PO (13:23)
[2017-01-14] MEDS ORDERED: ONDA8TAB12 PO (13:23)
[2017-01-14] MEDS ORDERED: OXYC1CAP5 PO (13:23)
[2017-01-14] MEDS ORDERED: ENOX40IN SQ (13:23)
[2017-01-14] MEDS ORDERED: MULT-477 PO (13:23)
--- NOTE | 2017-01-14 13:55 | EMERGENCY ROOM VISIT NOTE ---
ED Visit Note First contact with patient: 11:40 Resident Physician Supervision Note: I interviewed and examined the patient. Discussed with Dr. Rodriguez and agree with findings and plan as documented in the note. Any exceptions or clarifications are listed here: [None] Documented By: Michael Ragsdale
[2017-01-14] MEDS ORDERED: POLYETHYLENE (MIRALAX) 17 GM PACK PO PRN (14:15)
[2017-01-14] MEDS ORDERED: ACETAMINOPHEN 325 MG TAB PO PRN (14:15)
[2017-01-14] MEDS ORDERED: MAGNESIUM HYDROXIDE SUSP 30 ML UDC PO PRN (14:15)
[2017-01-14] MEDS ORDERED: ALUMINUM/MAGNESIUM/SIMETH (MAALOX MAX) 30 ML UDC PO PRN (14:15)
[2017-01-14] MEDS ORDERED: ONDANSETRON INJ 2 MG/ML 2 ML VIAL IV PRN ×2 (14:15→14:45)
[2017-01-14] MEDS ORDERED: FENTANYL CITRATE INJ 50 MCG/1 ML 2 ML VIAL ONE (14:26)
[2017-01-14] MEDS ORDERED: LIDOCAINE HCL 2% 2 ML VIAL (20MG/ML) ONE (14:26)
[2017-01-14] MEDS ORDERED: PROPOFOL IV EMULSION 10 MG/ML 20 ML VIAL IV ONE (14:26)
[2017-01-14] MEDS ORDERED: SUCCINYLCHOLINE CHLORIDE 20 MG/ML 10 ML VIAL IV ONE (14:26)
[2017-01-14] MEDS ORDERED: OXYCODONE HCL IR 5 MG TAB (IMMEDIATE RELEASE) PO PRN (14:30)
[2017-01-14] MEDS ORDERED: LABETALOL HCL IV 5 MG/ML 20ML IV PRN (14:45)
[2017-01-14] MEDS ORDERED: ATROPINE SULFATE 0.1 MG/ML 5ML SYR IV PRN (14:45)
[2017-01-14] MEDS ORDERED: PHENYLEPHRINE 100MCG/ML 5ML SYR IV PRN (14:45)
[2017-01-14] MEDS ORDERED: EpHEDrine SULFATE INJ 50 MG/ML AMP IV PRN (14:45)
[2017-01-14] MEDS ORDERED: FENTANYL CITRATE INJ 50 MCG/1 ML 2 ML VIAL IV PRN (14:45)
[2017-01-14] MEDS ORDERED: MIDAZOLAM HCL 1 MG/ML 2ML VIAL ONE (14:57)
--- NOTE | 2017-01-14 14:57 | History and Physical ---
History & Physical Date & Time of Service: Jan 14, 2017 at 14:01 Chief Complaint: Vomit/Coffee Gound / [facility] Primary Care Physician: Saeed MATTHEWS History of Present Illness Source: patient 61M with a PMHx of HTN, Patricia's gangrene 3 weeks ago for which he received bilateral nephrostomy tubes and a colostomy pouch at [facility] and h/o colon cancer s/ p chemo, radiation, surgery presents with a one day history of coffee ground emesis and black ostomy output that started yesterday evening. Pt denies eating anything different yesterday, feeling sick or any abdominal trauma. Pt vomiting because he felt nauseous. Pt reports a chronic history of heartburn for which he takes Tums. Pt has had a GI bleed in the past, one year ago, for which he was scoped and treated in [facility]. Pt does not know why he has gastritis. Pt denies any history of crohn's disease, chronic NSAID use, IBS, IBD, alcoholism. ROS: + nausea + vomiting, +dark stool no fevers, no diarrhea, no chest pain, no syncope, no SOB, no abdominal pain. PMHx: HTM, Patricia's Gangrene w nephrostomy tubes and colostomy back, colon cancer, crushed left foot, staph infection, ?peritonsillar abscess, Left Nephrostomy tube fell out - supposed to have surgery in the next few days in [place] for its replacement. PSHx: Appendectomy, Colostomy reversal for his colon cancer, Allergies: NKDA Meds: as documented SHx: In snf, release day according to pt in 1-2 months, has been imprisoned for 10 months, 25pack year smoking history, pt denies any illicit drug use. Past Medical/Surgical History Medical Problems: (1) Cellulitis of left upper limb Status: Resolved (2) Diabetes Status: Chronic (3) Patricia's gangrene Status: Resolved (4) History of colon cancer Status: Chronic (5) Rectal cancer Permanent Comment: s/p resection ([place]), XRT and chemotherapy in 2003- Status: Resolved Surgical Problems: (1) History of right hip replacement Status: Resolved (2) Nephrostomy status Status: Chronic (3) Status post ablation of atrial fibrillation Status: Chronic Family History Patient reports no known family medical history. Social History Smoking Status: Former Smoker Drug Use: none Housing status: other Occupational Status: other Multi-Drug Resistant Organisms History of MDRO: Yes Type of MDRO: MRSA Allergies Coded Allergies: No Known Allergies (Unverified , 01/14/17) Home Medications Scheduled Acetaminophen (Tylenol), 1,000 MG PO TID Aspirin (Aspirin), 1 TAB PO BID Dakin's Solution Full Strength (Dakins Solution Full Stre), 1 EA TOP BID Enoxaparin (Lovenox), 0.4 ML SQ DAILY Meloxicam (Mobic), 15 MG PO DAILY Metoprolol Tartrate (Lopressor) (Lopressor), 25 MG PO BID Multiple Vitamin (Thera), 1 TAB PO DAILY Tamsulosin Hcl (Flomax), 0.8 MG PO PM Scheduled PRN Ondansetron Hcl (Zofran), 8 MG PO Q8 PRN for Nausea or Vomiting Oxycodone Hcl (Oxycodone Hcl), 1 CAP PO QID PRN for Pain Physical Exam Vital Signs Date Time Temp Pulse Resp B/P (MAP) Pulse Ox O2 Delivery O2 Flow Rate FiO2 01/14/17 13:39 36.7 63 16 125/97 98 01/14/17 13:32 65 15 117/76 95 Room Air 01/14/17 13:21 36.6 61 16 121/72 100 01/14/17 12:51 60 16 126/68 98 Room Air 01/14/17 12:13 60 16 109/66 98 Room Air 01/14/17 11:38 98 Room Air 01/14/17 11:31 98 Room Air 01/14/17 11:30 65 16 97/57 98 Room Air 01/14/17 11:30 64 01/14/17 11:14 37.1 58 16 107/63 100 Room Air General Appearance: WD/WN, no apparent distress, + pertinent finding (R nephrostomy tube draining urine. ) Respiratory/Chest: chest non-tender, lungs clear, normal breath sounds, no respiratory distress, no accessory muscle use Cardiovascular: regular rate, rhythm, no edema, no gallop, no JVD, no murmur, normal peripheral pulses Abdomen/GI: + pertinent finding (tender to deep palpation in the left middle and right middle quadrants. No gaurding. Soft. No rebound tenderness. Ostomy bag draining dark fecal material. Mesh can be palpated in subcutaneously in the right middle quadrant. ) Extremities/Musculoskelatal: no calf tenderness, normal capillary refill, no pedal edema Neurologic/Psych: normal mood/affect, normal reflexes, oriented x 3 Diagnostics Laboratory Results Results Past 24 Hours Test 01/14/17 11:23 Range/Units White Blood Count 4.49 4.8-10.8 K/uL Red Blood Count 2.57 4.7-6.1 M/uL Hemoglobin 7.1 14.0-18.0 g/dL Hematocrit 21.6 42-52 % Mean Corpuscular Volume 84.0 80-100 fL Mean Corpuscular Hemoglobin 27.6 25-34 pg Mean Corpuscular Hemoglobin Concent 32.9 32-36 g/dl RDW Standard Deviation 52.0 36.4-46.3 fL RDW Coefficient of Variation 16.8 11.5-14.5 % Platelet Count 286 130-400 K/uL Mean Platelet Volume 9.0 7.4-10.4 fL Prothrombin Time 11.6 9.0-12.0 SECONDS Prothromb Time International Ratio 1.1 0.9-1.1 Activated Partial Thromboplast Time 25.7 21.0-31.0 SECONDS Partial Thromboplastin Ratio 1.0 Sodium Level 138 136-145 mmol/L Potassium Level 4.4 3.5-5.1 mmol/L Chloride Level 103 98-107 mmol/L Carbon Dioxide Level 27 21-32 mmol/L Anion Gap 8.0 3-11 mmol/L Blood Urea Nitrogen 33 7-18 mg/dl Creatinine 1.20 0.60-1.40 mg/dl Est Creatinine Clear Calc Drug Dose 51.0 ml/min Estimated GFR () 74.7 Estimated GFR (Non- 64.4 BUN/Creatinine Ratio 27.1 10-20 Random Glucose 92 70-99 mg/dl Calcium Level 9.2 8.5-10.1 mg/dl Total Bilirubin 0.2 0.2-1 mg/dl Aspartate Amino Transf (AST/SGOT) 18 15-37 U/L Alanine Aminotransferase (ALT/SGPT) 13 12-78 U/L Alkaline Phosphatase 77 45-117 U/L Total Protein 7.8 6.4-8.2 gm/dl Albumin 2.5 3.4-5.0 gm/dl Globulin 5.3 2.5-4.0 gm/dl Albumin/Globulin Ratio 0.5 0.9-2 Diagnostic Radiology PA CHEST WITH ABDOMINAL SERIES CLINICAL HISTORY: Epigastric abdominal pain. FINDINGS: A PA chest radiograph is compared to study dated 12/24/2016. The cardiomediastinal silhouette is unremarkable. There is atherosclerotic calcification of the thoracic aorta. Emphysema and chronic interstitial thickening are similar to previous. No airspace consolidation or pleural effusion is identified. No pneumothorax is seen. The skeletal structures appear osteopenic. Healed rib fractures are noted. Atherosclerotic calcification is noted in the carotid bulbs. Supine and erect abdominal radiographs are correlated with abdominal CT dated 12/25/2016. There is a nonobstructed abdominal bowel gas pattern noting moderate to severe constipation. No evidence of intraperitoneal free air is seen. A right percutaneous nephrostomy is new from 12/25/2016. Extensive surgical mesh is noted in the ventral abdomen. An ostomy is identified in the left mid abdomen. There is advanced atherosclerotic calcification of the abdominal aorta. Suture material projects over the right upper quadrant. The lumbosacral spine and bony pelvis appear intact. A right hip arthroplasty is in place. A large cortical defect in the left ilium is unchanged. IMPRESSION: 1. Emphysema with no acute cardiopulmonary abnormality. 2. Nonobstructed abdominal bowel gas pattern noting moderate to severe constipation. 3. A right-sided percutaneous nephrostomy tube and an ostomy are new from 12/25/2016. 4. No intraperitoneal free air is seen. 5. Additional findings as above. 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 Pt was given 1unit PRBC in the ER and made NPO. GI (Dr. Aguilar) was consulted. GI Bleed - Hemoglobin was 7.1. Latest Hgb was 10.3 on d/c from [place] (01/01/2017). - Pt has a chronic history of gastritis and not on H2 dixon or PPI. - Protonix Drip x [address] Aguilar. - GI Consult - s/p upper GI: Impression: - LA Grade B reflux esophagitis - Small hiatus hernia. - Multiple non-bleeding duodenal ulcers with a visible vessel. Injected. Treated with a heater probe. Recommendation: - Clear liquid diet. - Give Protonix (pantoprazole): initiate therapy with 80 mg IV bolus, then 8 mg/hr IV by continuous infusion for 3 days. - H&H at 6pm and then Q8H, transfuse if hemoglobin <8. - NSS at 80ml/hr Patricia's Gangrene (Bilateral nephrostomy tubes + colostomy) - s/p Metronidazole and Cipro, stop date according to Powerchart was 01/03/2017. - He has follow up with colorectal (Keke SERNA) on 01/16/2017 @ 11:15am. - According to chart nephrostomy tubes were placed by colorectal as well. Chronic MSK Pain (s/p foot crush injuries) - c/w Tylenol 1mg TID PRN PO - c/w Oxycodone 5mg PRN PO HTN - c/w Metoprolol 25mg BID BPH c/w Tamsulosin 0.8mg QHS Dispo: Admit, Tele, Clear Liquid Diet DVT Proph: SCDs Code: Full Resident Physician Supervision Note: I was present with Dr. Martin during the history and exam. I discussed the case with the resident and agree with the findings and plan as documented in the note. Any exceptions or clarifications are listed here: 61-year-old male with a rather complicated medical history [facility] [place] with a upper GI bleed. The patient has a history for rectal carcinoma diagnosed around 2003 2004. The patient had initial resection done at [facility], but according to the patient, there were complications and a second operation was performed the following day which resulted in a diverting colostomy. Approximate one year later, the patient was sent to [facility] where he had a colostomy reversal. Following this, the patient states that he is followed with a surgeon and has had colonoscopies which have been unremarkable except for dilatation of stricture. In December of this year, he was seen initially here at the emergency department and transferred to for a perianal abscess. At [place], he underwent a rigid proctoscopy and flexible sigmoidoscopy with biopsy and debridement of the perineum. 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 Following this, he had creation of a transverse loop colostomy and perineal wound washout and packing change. A few days ago, the patient presented to the [facility] emergency department once again after his left nephrostomy tube became partially dislodged after being caught on some bedding. It was completely removed in the emergency department, and the patient was to have follow-up at the next week. The patient is still getting urine from his right nephrostomy tube; he is also urinating as well. The patient does complain of pain at the insertion site of the right nephrostomy tube. Shortly after his presentation today, he underwent an EGD with results as noted above. Prior to the EGD he was transfused with one unit of packed red blood cells and a second unit has been placed on hold. Recheck of his hemoglobin at 6 :00 this evening is still less than 8 so ago had an transfuse the second unit. PLAN 1) transfuse a second unit of packed red blood cells 2) follow hemoglobin every 6 hours 3) Protonix drip for 72 hours 4) consider urology consult regarding need for nephrostomy tube. Documented By: Obed Lebron Resident Involvement: Resident Care Provided Care Provided: Adult [facility] Medicine
--- NOTE | 2017-01-14 15:05 | Gastrointestinal Consultation ---
Gastrointestinal Consultation Date of Consultation: Jan 14, 2017 Attending Physician: Dr. Ragsdale Consulting Physician: Dr. Aguilar Reason for Consultation: Melena, Acute Blood loss anemia History of Present Illness Patient is a 61 year old male who presented to the ER today with a 2-3 day history of nausea with reported coffee ground emesis at [facility]. He subsequently presented to the ER and was noted to have a Hgb of 7.1 and was started on a Protonix gtt. I saw the patient in C Pod bed 10 of the ER and he was receiving a blood transfusion. He states that he has had intermittent 4/10 midepigastric abdominal pain for several months. He does report some heartburn intermittently as well and states that he only takes Tums to relieve his symptoms. He denies any hematemesis, however, does report vomiting black material. He states that he last underwent an EGD approximately 1 year ago, and was told he had "several gastric ulcers." He most recently underwent a colostomy at [facility] approximately 1 month ago per the patient for a perforated diverticulitis. He denies any fevers, chills, chest pain, SOB, cough, dysuria, hematuria or other complaints. He states that he is currently on Mobic therapy , as well as low dose aspirin therapy daily. Past Medical/Surgical History Medical Problems: (1) Acute renal failure Status: Acute (2) Anemia Status: Acute (3) Constipation Status: Acute (4) Fourniers gangrene Status: Acute (5) GI bleed Status: Acute (6) Hematemesis Status: Acute (7) Heme positive stool Status: Acute (8) Nephrostomy tube displaced Status: Acute (9) Sepsis Status: Acute Past Surgical History: Colostomy x2 initially for Colon cancer, which was reversed, and most recently for a perforated diverticulitis. Family History Patient reports no known family medical history. Social History Smoking Status: Former Smoker Drug Use: none Housing Status: other (Inmate at [facility]) Occupation Status: other (Inmate at [facility]) Allergies Coded Allergies: No Known Allergies (Unverified , 01/14/17) Current Medications Home Meds and Scripts Medications Dose Route/Sig Max Daily Dose Days Date Category Dose Instructions Oxycodone Hcl 5 Mg Cap 1 Cap PO QID PRN 30 01/14/17 Reported Zofran (Ondansetron Hcl) 8 Mg Tab 8 Mg PO Q8 PRN 01/14/17 Reported Dakins Solution Full Stre (Dakin's Solution Full Strength) 8 Appln/473 Ml Soln 1 Ea TOP BID 01/14/17 Reported used to change rectal patch Lovenox (Enoxaparin Sodium) 40 Mg/0.4 Ml Inj 0.4 Ml SQ DAILY 10 01/14/17 Reported Thera (Multiple Vitamin) 1 Tab Tab 1 Tab PO DAILY 01/14/17 Reported Mobic (Meloxicam) 15 Mg Tab 15 Mg PO DAILY 01/14/17 Reported Aspirin 325 Mg Tab 1 Tab PO BID 01/14/17 Reported Tylenol (Acetaminophen) 500 Mg Tab 1,000 Mg PO TID 01/14/17 Reported Flomax (Tamsulosin Hcl) 0.4 Mg Cap 0.8 Mg PO PM 12/24/16 Reported Lopressor (Metoprolol Tartrate) 25 Mg Tab 25 Mg PO BID 12/24/16 Reported Review of Systems Constitutional: No fever, No chills Eyes: No eye pain ENT: No hearing loss, No unusual epistaxis, No trouble swallowing, No pain on swallowing Respiratory: No cough, No sputum Cardiac: No chest pain, No palpitations Abdomen: + nausea, + vomiting, + GI bleeding, No dysphagia, No odynophagia, No acolic stools, No jaundice, No dark urine Male : No dysuria, No hematuria Psych: No depression symptoms Heme: No night sweats Endo: + fatigue Skin: No rash Physical Exam Date Time Temp Pulse Resp B/P (MAP) Pulse Ox O2 Delivery O2 Flow Rate FiO2 01/14/17 14:09 36.6 67 15 115/69 98 01/14/17 13:39 36.7 63 16 125/97 98 01/14/17 13:32 65 15 117/76 95 Room Air 01/14/17 13:21 36.6 61 16 121/72 100 01/14/17 12:51 60 16 126/68 98 Room Air 01/14/17 12:50 98 Room Air 01/14/17 12:13 60 16 109/66 98 Room Air 01/14/17 11:38 98 Room Air 01/14/17 11:31 98 Room Air 01/14/17 11:30 65 16 97/57 98 Room Air 01/14/17 11:30 64 01/14/17 11:14 37.1 58 16 107/63 100 Room Air General Appearance: + thin, + pertinent finding (Chronic ill-appearing) Eyes: PERRL, EOMI ENT: hearing grossly normal Neck: supple, no adenopathy Respiratory/Chest: lungs clear, normal breath sounds Cardiovascular: regular rate, rhythm, no murmur Abdomen: non tender, soft Extremities: non-tender Neurologic/Psych: alert, oriented x 3 Skin: + pallor Laboratory Results Last 24 Hours Test 01/14/17 11:23 White Blood Count 4.49 K/uL Red Blood Count 2.57 M/uL Hemoglobin 7.1 g/dL Hematocrit 21.6 % Mean Corpuscular Volume 84.0 fL Mean Corpuscular Hemoglobin 27.6 pg Mean Corpuscular Hemoglobin Concent 32.9 g/dl RDW Standard Deviation 52.0 fL RDW Coefficient of Variation 16.8 % Platelet Count 286 K/uL Mean Platelet Volume 9.0 fL Prothrombin Time 11.6 SECONDS Prothromb Time International Ratio 1.1 Activated Partial Thromboplast Time 25.7 SECONDS Partial Thromboplastin Ratio 1.0 Sodium Level 138 mmol/L Potassium Level 4.4 mmol/L Chloride Level 103 mmol/L Carbon Dioxide Level 27 mmol/L Anion Gap 8.0 mmol/L Blood Urea Nitrogen 33 mg/dl Creatinine 1.20 mg/dl Est Creatinine Clear Calc Drug Dose 51.0 ml/min Estimated GFR () 74.7 Estimated GFR (Non- 64.4 BUN/Creatinine Ratio 27.1 Random Glucose 92 mg/dl Calcium Level 9.2 mg/dl Total Bilirubin 0.2 mg/dl Aspartate Amino Transf (AST/SGOT) 18 U/L Alanine Aminotransferase (ALT/SGPT) 13 U/L Alkaline Phosphatase 77 U/L Total Protein 7.8 gm/dl Albumin 2.5 gm/dl Globulin 5.3 gm/dl Albumin/Globulin Ratio 0.5 Impression Assessment: Patient is a 61 year old male who presented to the ER with acute blood loss anemia, melena and coffee ground emesis. Plan: Admit to hospitalist service Protonix gtt 8mg/hr EGD now in the OR for further evaluation of bleeding source. Transfuse as needed to maintain H/H > 8/24
[2017-01-14] MEDS ORDERED: ONDANSETRON INJ 2 MG/ML 2 ML VIAL ONE (16:09)
--- NOTE | 2017-01-14 16:29 | GI REPORT ---
Procedure Date: 01/14/2017 3:15 PM Procedure: Upper GI endoscopy Indications: Acute post hemorrhagic anemia, Coffee-ground emesis, Melena Medicines: General Anesthesia Complications: No immediate complications. Estimated Blood Loss: Estimated blood loss: none. Estimated blood loss was minimal. Procedure: Pre-Anesthesia Assessment: - Prior to the procedure, a History and Physical was performed, and patient medications and allergies were reviewed. The patient's tolerance of previous anesthesia was also reviewed. The risks and benefits of the procedure and the sedation options and risks were discussed with the patient. All questions were answered, and informed consent was obtained. Prior Anticoagulants: The patient has taken aspirin, last dose was 1 day prior to procedure. ASA Grade Assessment: E - Emergency. After reviewing the risks and benefits, the patient was deemed in satisfactory condition to undergo the procedure. After obtaining informed consent, the endoscope was passed under direct vision. Throughout the procedure, the patient's blood pressure, pulse, and oxygen saturations were monitored continuously. The Scope was introduced through the mouth, and advanced to the second part of duodenum. The upper GI endoscopy was accomplished without difficulty. The patient tolerated the procedure well. Findings: LA Grade B (one or more mucosal breaks greater than 5 mm, not extending between the tops of two mucosal folds) esophagitis with no bleeding was found. A small hiatus hernia was present. Two non-bleeding cratered duodenal ulcers with a visible vessel were found in the duodenal bulb. The largest lesion was 15 mm in largest dimension. Area was successfully injected with 2 mL of a 1:10,000 solution of epinephrine for hemostasis. Fulguration to ablate the lesion by heater probe was successful. Impression: - LA Grade B reflux esophagitis. - Small hiatus hernia. - Multiple non-bleeding duodenal ulcers with a visible vessel. Injected. Treated with a heater probe. - No specimens collected. Recommendation: - Admit the patient to [facility] for [facility] care. - Clear liquid diet. - Give Protonix (pantoprazole): initiate therapy with 80 mg IV bolus, then 8 mg/hr IV by continuous infusion for 3 days. Contreras Aguilar DO 01/14/2017 4:29:02 PM This report has been signed electronically. Note Initiated On: 01/14/2017 3:15 PM I attest to the content of the Intraoperative Record and orders documented therein, exceptions below
--- NOTE | 2017-01-14 16:40 | Anesthesiology Progress Note ---
Anesthesia Post Op Note Date & Time Jan 14, 2017 at 16:40 Vital Signs Pain Intensity: 0.0 Vital Signs Past 12 Hours Date Time Temp Pulse Resp B/P (MAP) Pulse Ox O2 Delivery O2 Flow Rate FiO2 01/14/17 14:51 65 16 109/52 98 Room Air 01/14/17 14:09 36.6 67 15 115/69 98 01/14/17 13:39 36.7 63 16 125/97 98 01/14/17 13:32 65 15 117/76 95 Room Air 01/14/17 13:21 36.6 61 16 121/72 100 01/14/17 12:51 60 16 126/68 98 Room Air 01/14/17 12:50 98 Room Air 01/14/17 12:13 60 16 109/66 98 Room Air 01/14/17 11:38 98 Room Air 01/14/17 11:31 98 Room Air 01/14/17 11:30 65 16 97/57 98 Room Air 01/14/17 11:30 64 01/14/17 11:14 37.1 58 16 107/63 100 Room Air Notes Mental Status: alert / awake / arousable, participated in evaluation Pt Amnestic to Procedure: Yes Nausea / Vomiting: adequately controlled Pain: adequately controlled Airway Patency, RR, SpO2: stable & adequate BP & HR: stable & adequate Hydration State: stable & adequate Anesthetic Complications: no major complications apparent
[2017-01-14] MEDS: PANTOprazole INJ 40 MG in DEXTROSE 5% 100ML IV SCH ×2 (17:59→22:07)
[2017-01-14] MEDS ORDERED: SODIUM CHLORIDE 0.9% 1000ML 1,000 ML IV SCH (18:00)
[2017-01-14] MEDS: DAKIN'S SOLN 0.5% FULL STRENGTH 473ML BTL EXT SCH (18:03)
[2017-01-14 18:20] LABS: HEMATOCRIT 22.8 % (42-52)
[2017-01-14] MEDS ORDERED: DAKIN'S SOLN 0.5% FULL STRENGTH 473ML BTL EXT SCH (21:00)
[2017-01-14] MEDS ORDERED: TAMSULOSIN HCL 0.4 MG CAP PO SCH (21:00)
[2017-01-14] MEDS ORDERED: METOPROLOL TARTRATE 25 MG TAB PO SCH (21:00)
[2017-01-14] MEDS ORDERED: ASPIRIN 325 MG ECTAB PO SCH (21:00)
[2017-01-14] MEDS: ACETAMINOPHEN 500 MG TAB PO SCH (21:39)
[2017-01-15] VITALS (7 sets, daily range): BP systolic 92–106; BP diastolic 56–61; PULSE 54–80; TEMP 36.5–36.7; O2SAT 98–100
[2017-01-15 02:17] LABS: HEMATOCRIT 24.7 % (42-52)
[2017-01-15] MEDS: PANTOprazole INJ 40 MG in DEXTROSE 5% 100ML IV SCH ×2 (03:11→08:45)
[2017-01-15] MEDS: ACETAMINOPHEN 500 MG TAB PO SCH (06:05)
[2017-01-15] MEDS: DAKIN'S SOLN 0.5% FULL STRENGTH 473ML BTL EXT SCH (07:47)
--- NOTE | 2017-01-15 07:54 | Family Medicine Progress Note ---
Progress Note Date of Service Jan 15, 2017. Subjective Pt evaluation today including: conversation w/ patient Today at approximately 9am pt vomited up 400mls of bright red blood. Our GI doc (Dr. Contreras Aguilar) was consulted and recommend interventional radiology to further evaluate this bleed. We do not have this service at [facility] and [facility] was contacted. Pt will be transferred to bed 6164 in the ICU at [facility]. Before transfer pt was given an additional 1unit of PRBCs. CBC taken approx 15 min before hematemesis was 8.1, on admission he was at 7.4. He received two units of RBCs prior to this morning. This morning was his first episode of hematemesis since his upper endoscopy. Baseline hemoglobin appears to be around 10.0. Vitals signs show and increase in HR, from a baseline of 60 to 90. Pt is on 25mg BID of Metoprolol. BP which overnight was at 120/80 is approximately 107/68. According to chart pt's Abx for nancy's disease ended on 01/03/17. Pt is on a home dose of Aspirin which was held on this admission. PMHx include colorectal cancer treated with radiation, chemo and surgery. Objective Physical Exam Notes: Gen: No acute distress. Pt is complaining of dizziness. HEENT: Head - normocephalic and atraumatic. Pupils are equal, round, and reactive to light. Extraocular eye muscles are intact and sclera are anicteric. Ears - bilaterally patent canals with noninjected tympanic membranes and no evidence of hemotympanum. Nose - moist nasal mucosa without discharge. Mouth - moist buccal mucosa. Oropharynx is nonerythematous and there is no tonsillar exudate or edema noted. Neck: Supple; no JVD, nuchal rigidity, cervical lymphadenopathy, or auscultated bruits. Heart: Regular rate and rhythm. There is a normal S1 and S2 with no murmurs, clicks, or gallops appreciated. Lungs: Clear to auscultation bilaterally with no wheezes, rales, or rhonchi. Abdomen: Soft, slightly tender in the right middle quadrant and left middle quadrant. No rebound. Pt has an ostomy bag. Extremities: No evidence of cyanosis, clubbing, or edema. There are easily palpable peripheral pulses. Neuro:The patient is awake and alert, oriented to day, time, and place. Muscle strength is 5/5 in all 4 extremities. 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 There are no cerebellar signs. Skin: Gaping perineal ulcer 2/2 to Nancy's Gangrene. Assessment and Plan Resident Physician Supervision Note: I was present with [Name of resident] during the history and exam. I discussed the case with the resident and agree with the findings and plan as documented in the note. 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 Pt was given 1unit PRBC in the ER and made NPO. Upper endoscopy had ligation of active duodenal vessel. Pt in AM of 01/15/2017 had another episode of hematemesis. Pt's heart rate increased from baseline and BP decreased from baseline. [facility] was contacted for interventional radiology - a service not provided at [facility]. Pt will be admitted to bed 6164 in the ICU. Pt will be transported by air and be given 1unit PRBCs (for a total of 3 units during this admission) before transfer. GI Bleed - Hemoglobin was 8.1<--7.1. Latest Hgb was 10.3 on d/c from [place] (01/01/2017 ). - Pt has a chronic history o gastritis and not on H2 dixon or PPI. - Per Case pt will need interventional radiology. 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 - He has follow up with colorectal (Keke SERNA) on 01/16/2017 @ 11:15am. Chronic MSK Pain (s/p foot crush injuries) - c/w Tylenol 1mg TID PRN PO - c/w Oxycodone 5mg PRN PO HTN - c/w Metoprolol 25mg BID BPH c/w Tamsulosin 0.8mg QHS Dispo: Transfer to [facility]. DVT Proph: SCDs Code: Full Resident Physician Supervision Note: I was present with the resident physician during the history and exam. I discussed the case with the resident and agree with the findings and plan as documented in the note. Any exceptions or clarifications are listed here: Please see complete additional documentation in the discharge summary of the same date. Documented By: Obed Lebron Resident Involvement: Resident Care Provided Care Provided: Adult [facility]
[2017-01-15 08:59] LABS: HEMATOCRIT 25.3 % (42-52); MEAN CELL VOLUME 86.3 fL (80-100); MEAN CORPUSCULAR HEMOGLOBIN 27.6 pg (25-34); MEAN PLATELET VOLUME 8.9 fL (7.4-10.4); PLATELET COUNT 261 K/uL (130-400); RED BLOOD COUNT 2.93 M/uL (4.7-6.1); WHITE BLOOD COUNT 5.23 K/uL (4.8-10.8)
[2017-01-15] MEDS ORDERED: MELOXICAM 7.5 MG TAB PO SCH (09:00)
[2017-01-15] MEDS ORDERED: MULTIVITAMIN TAB PO SCH (09:00)
[2017-01-15 09:29] LABS: BUN/CREATININE RATIO 27.4 (10-20); CALCIUM 8.2 mg/dl (8.5-10.1); CREATININE 0.92 mg/dl (0.60-1.40); POTASSIUM 4.3 mmol/L (3.5-5.1)
--- NOTE | 2017-01-15 09:29 | Gastroenterology Progress Note ---
Progress Note Date of Service: Jan 15, 2017 Subjective Pt evaluation today including: chart review, lab review, review of studies, conversation w/ telesales consultant Contacted this morning by Dr. Martin (policy intern) as patient had large volume ( 400ml) hematemesis following ingestion of soup broth. He has remained hemodynamically stable with SBP >100 and pulse in 60's to 80's. Patient did undergo EGD with endoscopic therapy yesterday, and has been on PPI drip. He received 2u PRBC overnight. Hgb was 8.1 this AM. Medications Current Inpatient Medications Medications (Trade) Dose Ordered Sig/Kanchan Route Start Time Stop Time Status Last Admin Dose Admin Acetaminophen (Tylenol Tab) 650 mg Q4H PRN PO 01/14/17 14:15 02/13/17 14:14 Al Hydrox/Mg Hydrox/Simethicone (Maalox Max Susp) 15 ml Q4H PRN PO 01/14/17 14:15 02/13/17 14:14 Magnesium Hydroxide (Milk Of Magnesia Susp) 30 ml Q6H PRN PO 01/14/17 14:15 02/13/17 14:14 Polyethylene (Miralax Powder Packet) 17 gm DAILY PRN PO 01/14/17 14:15 02/13/17 14:14 Ondansetron HCl (Zofran Inj) 4 mg Q6H PRN IV 01/14/17 14:15 02/13/17 14:14 01/15/17 08:41 4 MG Acetaminophen (Tylenol Tab) 1,000 mg Q8H PO 01/14/17 22:00 02/13/17 21:59 01/15/17 06:05 1,000 MG Multivitamins (Multivitamin Tab) 1 tab DAILY PO 01/15/17 09:00 02/14/17 08:59 01/15/17 07:47 1 TAB Tamsulosin HCl (Flomax Cap) 0.8 mg PM PO 01/14/17 21:00 02/13/17 20:59 01/14/17 21:38 0.8 MG Oxycodone HCl (Roxicodone Immediate Rel Tab) 5 mg QID PRN PO 01/14/17 14:30 01/28/17 14:29 01/15/17 07:50 5 MG Pantoprazole Sodium 40 mg/ Dextrose 100 ml @ 20 mls/hr Q5H IV 01/14/17 18:00 02/13/17 17:59 01/15/17 08:45 20 MLS/HR Irrigating Solution (Dakin'S Soln Full Strength) 1 appln BID EXT 01/14/17 21:00 02/13/17 20:59 01/15/17 07:47 1 APPLN Objective Vital Signs Date Time Temp Pulse Resp B/P (MAP) Pulse Ox O2 Delivery O2 Flow Rate FiO2 01/15/17 07:46 36.7 80 16 106/61 (76) 99 Room Air 01/15/17 04:00 98 Room Air 01/15/17 03:20 36.6 54 16 92/56 (68) 98 01/15/17 00:00 98 Room Air 01/14/17 23:46 36.1 68 16 93/55 (68) 97 Room Air 01/14/17 22:00 36.8 68 20 119/60 97 01/14/17 21:30 36.8 61 16 124/70 98 01/14/17 21:00 36.7 69 18 124/65 98 01/14/17 20:45 36.7 63 16 120/69 99 01/14/17 20:30 36.6 60 16 122/73 98 01/14/17 20:00 98 Room Air 01/14/17 19:15 36.6 61 20 97/59 (72) 100 Room Air 01/14/17 18:30 59 118/64 (82) 99 01/14/17 17:30 36.5 72 20 132/77 (95) 98 Room Air 01/14/17 17:10 36 55 18 117/69 98 Room Air 01/14/17 17:00 36 55 16 128/72 99 Room Air 01/14/17 16:50 53 20 137/80 98 Room Air 01/14/17 16:40 56 20 132/79 100 Mask 10 01/14/17 16:30 62 20 127/80 100 Mask 10 01/14/17 16:20 36.2 78 22 113/78 99 Mask 10 01/14/17 14:51 65 16 109/52 98 Room Air 01/14/17 14:09 36.6 67 15 115/69 98 01/14/17 13:39 36.7 63 16 125/97 98 01/14/17 13:32 65 15 117/76 95 Room Air 01/14/17 13:21 36.6 61 16 121/72 100 01/14/17 12:51 60 16 126/68 98 Room Air 01/14/17 12:50 98 Room Air 01/14/17 12:13 60 16 109/66 98 Room Air 01/14/17 11:38 98 Room Air 01/14/17 11:31 98 Room Air 01/14/17 11:30 65 16 97/57 98 Room Air 01/14/17 11:30 64 01/14/17 11:14 37.1 58 16 107/63 100 Room Air Laboratory Results Last 24 Hours Test 01/14/17 11:23 01/14/17 17:05 01/14/17 18:07 01/14/17 21:05 White Blood Count 4.49 K/uL Red Blood Count 2.57 M/uL Hemoglobin 7.1 g/dL 7.4 g/dL Hematocrit 21.6 % 22.8 % Mean Corpuscular Volume 84.0 fL Mean Corpuscular Hemoglobin 27.6 pg Mean Corpuscular Hemoglobin Concent 32.9 g/dl RDW Standard Deviation 52.0 fL RDW Coefficient of Variation 16.8 % Platelet Count 286 K/uL Mean Platelet Volume 9.0 fL Prothrombin Time 11.6 SECONDS Prothromb Time International Ratio 1.1 Activated Partial Thromboplast Time 25.7 SECONDS Partial Thromboplastin Ratio 1.0 Sodium Level 138 mmol/L Potassium Level 4.4 mmol/L Chloride Level 103 mmol/L Carbon Dioxide Level 27 mmol/L Anion Gap 8.0 mmol/L Blood Urea Nitrogen 33 mg/dl Creatinine 1.20 mg/dl Est Creatinine Clear Calc Drug Dose 51.0 ml/min Estimated GFR () 74.7 Estimated GFR (Non- 64.4 BUN/Creatinine Ratio 27.1 Random Glucose 92 mg/dl Calcium Level 9.2 mg/dl Total Bilirubin 0.2 mg/dl Aspartate Amino Transf (AST/SGOT) 18 U/L Alanine Aminotransferase (ALT/SGPT) 13 U/L Alkaline Phosphatase 77 U/L Total Protein 7.8 gm/dl Albumin 2.5 gm/dl Globulin 5.3 gm/dl Albumin/Globulin Ratio 0.5 Bedside Glucose 92 mg/dl 88 mg/dl Test 01/15/17 02:10 01/15/17 08:41 Hemoglobin 8.1 g/dL 8.1 g/dL Hematocrit 24.7 % 25.3 % White Blood Count 5.23 K/uL Red Blood Count 2.93 M/uL Mean Corpuscular Volume 86.3 fL Mean Corpuscular Hemoglobin 27.6 pg Mean Corpuscular Hemoglobin Concent 32.0 g/dl RDW Standard Deviation 50.5 fL RDW Coefficient of Variation 16.1 % Platelet Count 261 K/uL Mean Platelet Volume 8.9 fL Assessment and Plan Assessment: 61 yo CM who presented with hematemesis and acute blood loss anemia. Found to have duodenal bulb ulcer with visible vessel and received endoscopic therapy with Epinephrine injection and heater probe, with Hematemesis this AM. Plan: Recommend patient be transferred emergently to tertiary care center with IR capabilities, as he has failed endoscopic therapy. Discussed case with Dr. Schmitt of surgery, who is in agreement. Advised Dr. Martin and primary team to transfer patient. I am happy to help with transfer or discuss case with accepting physician if needed.
--- NOTE | 2017-01-15 10:19 | Discharge Instructions ---
Discharge Instructions Date of Service Jan 15, 2017. Admission Reason for Admission: Anemia, Hematemesis, Heme Positive Stool Discharge Discharge Diagnosis / Problem: Acute duodenal bleed Discharge Goals Goal(s): Decrease discomfort, Improve function, Increase independence, Improve disease control, Improve nutritional status, Learn about illness Activity Recommendations Activity Limitations: as noted below Pt is NPO, had a clear liquid diet at approximately 8am this morning. Pt has two 20gauge IVs in place. . Instructions / Follow-Up Instructions / Follow-Up Please evaluate for continued upper GI bleed s/p upper endoscopy and epinephrine injection of a duodenal vessel. Progress notes will be attached. Pt's PMHx of significant for Patricia's Gangrene 3 weeks ago for which he was seen at [facility]. Current Hospital Diet Patient's current hospital diet: Clear Liquid Diet Discharge Diet Recommended Diet: N/A (NPO for transfer) Procedures Procedures Performed: Esophagogastroduodenoscopy with endoscopic therapy for bleeding Pending Studies Studies pending at discharge: no Medical Emergencies . Who to Call and When: Medical Emergencies: If at any time you feel your situation is an emergency, please call 911 immediately. . Non-Emergent Contact Non-Emergency issues call your: Hospital Doctor, Billiard Table Repairer . . "Provider Documentation" section prepared by Cristo Martin. . VTE Core Measure Inpt VTE Proph given/why not?: SCD's, Contraindicated Resident Involvement: Resident Care Provided Care Provided: Adult Hospital Medicine
--- NOTE | 2017-01-15 10:35 | Discharge Summary ---
Discharge Summary Date of Service Jan 15, 2017. (Cristo Martin M.D.) Discharge Summary Admission Date: Jan 14, 2017 at 15:18 Discharge Date: Jan 15, 2017 Discharge Disposition: Acute care facility ([facility] ICU bed 6164) Principal Diagnosis: Duodenal Bleed (Cristo Martin M.D.) Medication Reconciliation Continued Medications: Acetaminophen (Tylenol) 500 Mg Tab 1000 MG PO TID, TAB Dakin's Solution Full Strength (Dakins Solution Full Stre) 8 Appln/473 Ml Soln 1 EA TOP BID used to change rectal patch Metoprolol Tartrate (Lopressor) (Lopressor) 25 Mg Tab 25 MG PO BID, TAB Multiple Vitamin (Thera) 1 Tab Tab 1 TAB PO DAILY Ondansetron Hcl (Zofran) 8 Mg Tab 8 MG PO Q8 PRN for Nausea or Vomiting, TAB Oxycodone Hcl (Oxycodone Hcl) 5 Mg Cap 1 CAP PO QID PRN for Pain for 30 Days, #120 CAP Tamsulosin Hcl (Flomax) 0.4 Mg Cap 0.8 MG PO PM, CAP Discontinued Medications: Aspirin (Aspirin) 325 Mg Tab 1 TAB PO BID Enoxaparin (Lovenox) 40 Mg/0.4 Ml Inj 0.4 ML SQ DAILY for 10 Days, #10 SYR Meloxicam (Mobic) 15 Mg Tab 15 MG PO DAILY, TAB Discharge Exam See today's progress note for subjective and objective exam. 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 Pt was given 1unit PRBC in the ER and made NPO for upper endoscpy. Upper endoscopy had ligation of active duodenal vessel. Please see below for GI consultants impression. No hematemesis after procedure, pt given one more units of PRBC and diet was advanced to clear liquids. In AM of 01/15/2017 pt had a new episode of hematemesis of approximately 400mLs. Pt's heart rate increased from baseline and BP decreased from baseline. [facility] was contacted for interventional radiology evaluation - a service not provided at [facility]. Pt will be admitted to bed 6164 in the ICU for active GI bleed. Two 20gauge IVs are in place and the pt will be given another unit of PRBCs. 15minutes prior to hematemesis the pt's hemoglobin was 8.1.. GI Bleed - Admission Hemoglobin was 7.1. Am of 01/15/17 was 8.1. - Pt has a chronic history of gastritis and not on H2 dixon or PPI. - Pt is presently on a protonix drip. - Upper Endoscopy on 01/14/17: Impression: - LA Grade B reflux esophagitis - Small hiatus hernia. - Multiple non-bleeding duodenal ulcers with a visible vessel. Injected. Treated with a heater probe. Recommendation: - Clear liquid diet. - Give Protonix (pantoprazole): initiate therapy with 80 mg IV bolus, then 8 mg/hr IV by continuous infusion for 3 days. 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 - He has follow up with colorectal (Keke SERNA) on 01/16/2017 @ 11:15am. Chronic MSK Pain (s/p foot crush injuries) - c/w Tylenol 1mg TID PRN PO - c/w Oxycodone 5mg PRN PO HTN - c/w Metoprolol 25mg BID BPH c/w Tamsulosin 0.8mg QHS Dispo: ICU at [place]. DVT Proph: SCDs Code: Full Total Time Spent: Greater than 30 minutes This includes examination of the patient, discharge planning, medication reconciliation, and communication with other providers. (Cristo Martin M.D.) Resident Physician Supervision Note: I was present with the resident physician during the history and exam. I discussed the case with the resident and agree with the findings and plan as documented in the note. Any exceptions or clarifications are listed here: At approximately 8 AM, nursing advised that the patient had an episode of hematemesis. Following this, as noted above, the case was discussed with gastroenterology and general surgery here, both of whom recommended transfer to a tertiary care facility. On this, the case was discussed critical care staff at [facility] whom accepted the patient in transfer. I discussed the indications for transfer, the benefits of transfer, and the risk of transfer with the patient; he completed and signed the consent form for transfer. Arrangements were made for a immigration guard to accompany him on the helicopter flight to [place]. The patient he previously had 2 large-bore IV access sites established; while the patient's hemoglobin at the time was 8.1, due to active hemorrhage and in preparation for transfer, it was deemed prudent (and recommended by receiving facility) to transfuse the patient additional unit of packed red blood cells. Documented By: Obed Lebron Total Time Spent: Greater than 30 minutes Total time spent including physical exam, consultation with general surgery and gastroenterology here at this facility, discussion with ICU attending at receiving facility, and coronation of care with state correctional [place] guards and medevac arrangements totaled 1 hour and 25 minutes. (Obed Lebron.,D.O.) Discharge Instructions Please refer to the electronic Patient Visit Report (Discharge Instructions) for additional information. (Cristo Martin M.D.) Additional Copies To [facility] Resident Involvement: Resident Care Provided Care Provided: Adult Hospital Medicine (Cristo Martin M.D.)
== END 2017-01-15 11:13 | disposition short-term general hospital (02) | DRG 378 ==
LOC: EDBD 11:06 → C.EDC 11:08 → UNDOADMIN 14:08 → C.2E 14:08 → ENRESERV 14:33 → CANRESERV 14:33 → C.2E 15:18 → EDBEDREQSVC 15:45 → ENRESERV 15:49
PROVIDERS: ADMIT Family Medicine; ATTEND Family Medicine
PROC: 0W3P8ZZ Control Bleeding in Gastrointestinal Tract, Via Natural or Artificial Opening Endoscopic (ICD-10-PCS; principal; 2017-01-14 15:00)
PROC: 3E0G8GC Introduction of Other Therapeutic Substance into Upper GI, Via Natural or Artificial Opening Endoscopic (ICD-10-PCS; principal; 2017-01-14 15:00)
DX: K26.4 Chronic or unspecified duodenal ulcer with hemorrhage (principal); D62 Acute posthemorrhagic anemia; K92.0 Hematemesis; K20.9 Esophagitis, unspecified; K44.9 Diaphragmatic hernia without obstruction or gangrene; G89.29 Other chronic pain; M79.673 Pain in unspecified foot; S97.82XS Crushing injury of left foot, sequela; X58.XXXS Exposure to other specified factors, sequela; I10 Essential (primary) hypertension; E11.9 Type 2 diabetes mellitus without complications; J44.9 Chronic obstructive pulmonary disease, unspecified; N40.0 Benign prostatic hyperplasia without lower urinary tract symptoms; M19.90 Unspecified osteoarthritis, unspecified site; Z93.6 Other artificial openings of urinary tract status; Z93.3 Colostomy status; Z86.19 Personal history of other infectious and parasitic diseases; Z85.038 Personal history of other malignant neoplasm of large intestine; Z96.641 Presence of right artificial hip joint; Z87.891 Personal history of nicotine dependence; Z79.1 Long term (current) use of non-steroidal anti-inflammatories (NSAID); Z79.01 Long term (current) use of anticoagulants; Z79.82 Long term (current) use of aspirin; Z79.891 Long term (current) use of opiate analgesic; Z79.899 Other long term (current) drug therapy